=== PATIENT | female | born 1945 | race Caucasian/White ===

== ENCOUNTER 2016-10-17 16:12 | Inpatient (IN) | payer OTHER ==
[~2016-10-17] VITALS: Ht 157.5 cm; Wt 116.0 kg
[2016-10-17] MEDS ORDERED: FLOVENT INH (17:08)
[2016-10-17] MEDS ORDERED: METO25TA56 PO (17:08)
[2016-10-17] MEDS ORDERED: OMEP40CA41 PO (17:08)
[2016-10-17] MEDS ORDERED: INSDGIPEN SC (17:08)
[2016-10-17] MEDS ORDERED: ASPCH81X PO (17:08)
[2016-10-17] MEDS ORDERED: CALC500C70 PO (17:08)
[2016-10-17] MEDS ORDERED: IPRA1AER2 INH (17:08)
[2016-10-17] MEDS ORDERED: DIAZ2TAB PO (17:08)
[2016-10-17] MEDS ORDERED: DULA1INJ SQ (17:08)
[2016-10-17] MEDS ORDERED: SPIR25TA PO (17:08)
[2016-10-17] MEDS ORDERED: HYDR-4383 PO (17:08)
[2016-10-17] MEDS ORDERED: SYMIN160 INH (17:08)
[2016-10-17] MEDS ORDERED: HYDR25TA4 PO (17:08)
[2016-10-17] MEDS ORDERED: FLUT0.15 NAE (17:08)
[2016-10-17] MEDS ORDERED: LORAZEPAM 2 MG/ML 1 ML VIAL IV ONE (17:15)
[2016-10-17] MEDS ORDERED: ALBUT/IPRATROP 3MG/0.5MG NEB 3 ML VIAL INH ONE (17:15)
[2016-10-17 17:35] LABS: MEAN CORPUSCULAR HGB CONC 31.3 g/dl (32-36); MEAN PLATELET VOLUME 9.5 fL (7.4-10.4); PLATELET COUNT 448 K/uL (130-400)
[2016-10-17 17:51] LABS: BUN/CREATININE RATIO 15.8 (10-20); CALCIUM 8.8 mg/dl (8.5-10.1); CREATININE 2.4 mg/dl (0.60-1.20); POTASSIUM 4.2 mmol/L (3.5-5.1)
[2016-10-17 18:02] LABS: CKMB/CK RATIO 4.8 (0-3.0)
--- NOTE | 2016-10-17 18:10 | EMERGENCY ROOM VISIT NOTE ---
History First contact with patient: 16:42 Chief Complaint: SHORTNESS OF BREATH Stated Complaint: SOB,SWELLING IN THE FEET Nursing Triage Summary: increasing shortness of breath with cough and expectortion of yellow green mucus. History of Present Illness The patient is a 71 year old female who presents to the Emergency Room with complaints of progressive shortness of breath and chest pain for the past 2 weeks. Patients was noted to have gone to [place] ED because PCP noted 'abnormal Hb' , which was obtained due to progressive fatigue. She was evaluated there and noted to have a low but stable Hb 9.4. Baseline hemoglobin is unknown at this time. She was also found to have a Cr of 4.3 and recommend transfer to [facility] as they have a nephrology service. She was discharged AMA due to fear of having to stay at [facility]. She presents to [facility] with symptoms of shortness of breath and chest pain. The shortness of breath is constant. She takes 3 L nasal cannula at home ( reason uncertain, she denies COPD), oxygen needs have not increased but she feels overall more short of breath. She has also been having a productive cough with yellow sputum. She has been on oxygen since a bout of PNA in February 2016. She notes that Dr. Christiansen has been weaning her off of it slowly and she was doing well, until her shortness of breath began to worsen 2 weeks ago. In addition, she has been complaint of sternal chest pain that is worse with walking and improves 30 minutes after resting. The pain also radiate down her left arm. She denies using nitroglycerine or a past cardiac history. The pain is not pleuritic in nature. She denies radiation into the back. In addition, she notes worsening lower extremity edema with orthopnea. She denies palpitations or syncope. Past Medical/Surgical History Medical Problems: (1) GI bleed (2) High output heart failure History of Lung Ca with partial Right Pneumonectomy Hysterectomy HTN Diabetes Mellitus type 2 Home oxygen user (3 L by nasal cannula at baseline) Social History Smoking Status: Former Smoker (quit 10 years ago; 20 pack miles smoker) Smokeless Tobacco Use: No Alcohol Use: none Drug Use: none Marital Status: Housing Status: lives with family (lives with daughter) Current/Historical Medications Scheduled Aspirin (Aspirin Chewable), 81 MG PO DAILY Budesonide/Formoterol Fumarate (Symbicort 160/4.5 Inhaler ), 2 PUFFS INH BID Calcium/Vitamin D (Os-Solomon 500 Plus D), 1 TAB PO DAILY Dulaglutide (Trulicity), 0.75 MG SQ WK Fluticasone Propionate (Nasal) (Flonase Allergy Relief), 2 SPRAY IGNACIO DAILY Hydrochlorothiazide (Hctz), 25 MG PO DAILY Insulin Glargine (Lantus Solostar), 25 SC QPM Ipratropium-Albuterol (Combivent Respimat), 1 PUFFS INH QID Metoprolol Tartrate (Lopressor) (Lopressor), 25 MG PO BID Omeprazole (Prilosec), 40 MG PO DAILY Spironolactone (Aldactone), 25 MG PO DAILY [Flovent 110], 2 PUFF INH BID Scheduled PRN Diazepam (Valium), 2 MG PO TID PRN for Anxiety Hydrocodone/Acetaminophen (Anderson 10/325 Tab), 1 TAB PO TID PRN for Pain Allergies Coded Allergies: Phenol (Verified Allergy, Unknown, unknown (from chloraseptic), 10/17/16) Physical Exam Vital Signs Date Time Temp Pulse Resp B/P Pulse Ox O2 Delivery O2 Flow Rate FiO2 10/17/16 19:54 91 22 144/115 96 Nasal Cannula 3.0 10/17/16 17:05 97 10/17/16 16:57 97 Nasal Cannula 3.0 10/17/16 16:54 97 Nasal Cannula 3.0 10/17/16 16:24 36.5 62 28 189/102 86 Nasal Cannula 2.0 Physical Exam Constitutional: Vital signs as above were reviewed. General: Patient mildly agitated, mild distress, obese Eyes: Pupils equal, round, and reactive to light. Extraocular muscles are intact. No proptosis. No photophobia. ENT: Mucous membranes are moist. Oropharynx is clear. No sinus tenderness. TMs are clear bilaterally. Cardiovascular: Heart with a regular rate and rhythm. Pulses are palpable and symmetric in all 4 extremities. 2+ pedal edema chcf up the calfs Respiratory: No accessory muscle use. No retractions. No increased work of breathing. NC at baseline 3 L Expiratory wheezing bilaterally; cannot appreciate in crackles GI: Abdomen soft, nontender, nondistended. Normal active bowel sounds. No abdominal hernias appreciated. No rebound. No guarding. : No CVA tenderness appreciated. Musculoskeletal: No midline cervical or vertebral tenderness. No gross deformities. No bony tenderness. No calf swelling or tenderness. Integumentary: Warm, dry, no rashes appreciated. Neurological: Patient awake, alert, and oriented x 3. Cranial nerves two through 12 grossly intact. Lymph: No cervical lymphadenopathy appreciated. Medical Decision & Procedures ER Provider Diagnostic Interpretation: CLINICAL HISTORY: Dyspnea. FINDINGS: An AP, portable, upright chest radiograph is correlated with chest CT dated 07/27/2016. The examination is significantly degraded by portable technique, large body habitus, and patient rotation. The heart is enlarged and there is atherosclerotic calcification of the thoracic aorta. There is pulmonary vascular congestion and interstitial edema. Postoperative changes are identified in the right lung. No large pleural effusion or pneumothorax is seen. The skeletal structures are osteopenic. Postoperative change is noted in the right sided ribs. IMPRESSION: 1. Cardiomegaly with evidence of congestive failure and interstitial edema. 2. Superimposed pneumonia would be impossible to exclude. Clinical correlation will be required. 3. No large pleural effusion is seen Electronically signed by: Minor Reno M.D. 10/17/2016 6:30 PM Dictated Date/Time: 10/17/2016 6:28 PM Laboratory Results 10/17/16 17:27 Red Blood Count 3.32, Mean Corpuscular Volume 85.5, Mean Corpuscular Hemoglobin 26.8, Mean Corpuscular Hemoglobin Concent 31.3, Mean Platelet Volume 9.5 10/17/16 17:27 Test 10/17/16 17:27 10/17/16 19:23 White Blood Count 19.02 K/uL (4.8-10.8) Red Blood Count 3.32 M/uL (4.2-5.4) Hemoglobin 8.9 g/dL (12.0-16.0) Hematocrit 28.4 % (37-47) Mean Corpuscular Volume 85.5 fL (80-100) Mean Corpuscular Hemoglobin 26.8 pg (25-34) Mean Corpuscular Hemoglobin Concent 31.3 g/dl (32-36) Platelet Count 448 K/uL (130-400) Mean Platelet Volume 9.5 fL (7.4-10.4) RDW Standard Deviation 58.4 fL (36.4-46.3) RDW Coefficient of Variation 18.7 % (11.5-14.5) Nucleated RBC Absolute Count (auto) 0.08 K/uL (0-0) Neutrophils % (Manual) 37.2 % Lymphocytes % (Manual) 8.0 % Monocytes % (Manual) 1.8 % Eosinophils % (Manual) 53.0 % Nucleated Red Blood Cells % 0.4 % Neutrophils # (Manual) 7.08 K/uL (1.4-6.5) Total Absolute Neutrophils 7.08 K/uL (1.4-6.5) Lymphocytes # (Manual) 1.52 K/uL (1.2-3.4) Total Absolute Lymphocytes 1.52 K/uL (1.2-3.4) Monocytes # (Manual) 0.34 K/uL (0.11-0.59) Eosinophils # (Manual) 10.08 K/uL (0-0.5) Large Platelets 1+ Polychromasia 1+ Hypochromasia PRESENT Anisocytosis PRESENT Prothrombin Time 11.2 SECONDS (9.0-12.0) Prothromb Time International Ratio 1.0 (0.9-1.1) Activated Partial Thromboplast Time 23.6 SECONDS (21.0-31.0) Partial Thromboplastin Ratio 0.9 Anion Gap 10.0 mmol/L (3-11) Est Creatinine Clear Calc Drug Dose 24.4 ml/min Estimated GFR () 22.5 Estimated GFR (Non- 19.4 BUN/Creatinine Ratio 15.8 (10-20) Calcium Level 8.8 mg/dl (8.5-10.1) Total Creatine Kinase 96 U/L (26-192) Creatine Kinase MB 4.6 ng/ml (0.5-3.6) Creatine Kinase MB Ratio 4.8 (0-3.0) Procalcitonin 0.10 ng/mL (0-0.5) Troponin I 2.520 ng/ml (0-0.045) Medications Administered Medications (Trade) Dose Ordered Sig/Lucas Route Start Time Stop Time Status Last Admin Dose Admin Lorazepam (Ativan Inj) 1 mg NOW ONCE IV 10/17/16 17:15 10/17/16 17:16 DC 10/17/16 17:39 1 MG Albuterol/ Ipratropium (Duoneb) 3 ml ONE ONCE INH 10/17/16 17:15 10/17/16 17:16 DC 10/17/16 17:39 3 ML Aspirin (Aspirin Chew) 324 mg NOW STAT PO 10/17/16 18:15 10/17/16 18:20 DC 10/17/16 19:56 324 MG Methylprednisolone Sodium Succinate (Solu-Medrol IV) 125 mg NOW STAT IV 10/17/16 19:08 10/17/16 19:11 DC 10/17/16 19:57 125 MG Albuterol/ Ipratropium (Duoneb) 3 ml QIDR INH 10/17/16 20:00 11/16/16 19:59 10/17/16 19:57 3 ML ED Course 16:40 - Patient seen and assessed Initial orders: CBC, BMP, Troponin, CK, CKMB, EKG, Chest X-ray Request old records from [facility] 17:30 - Old records received and reviewed Cr one week ago was 4.3; troponin was 1.3, WBC 13 18:00 - Critical result given to me: troponin 2.4 325 ASA ordered for patient 18:30 - Reviewed EMR Echocardiogram in August 2016; EF 55-60% with grade 1 diastolic dysfunction CXR reviewed; evidence of cardiomegaly with congestion 18:40 - Hemoccult obtained and positive 19:30 - Decision to admit; discussed case with Dr. Génesis Kauffman MD; agrees to admit patient for further work-up Patient admitted to hospitalist service in stable condition. Medical Decision Patient presents after recent discharge from [facility] for worsening shortness of breath and fatigue. History obtained, exam performed and EMR reviewed. Patient noted to have multiple issues at that admission that persist at this time including acute kidney injury. Her Cr is improved today, however but based on limited EMR information from [employer], has had 2 Cr that were 1.6 and 2.3 so her actual baseline is unclear. She notes chest pain, with classic anginal description including worsening with exertion and improvement with rest. Troponin was high 1 week ago per records from [place] and first troponin here as elevated at 2.3. This is somewhat confounded by the fact that the has deranged renal function. In addition she presents with a normocytic anemia with a positive hemoccult, suggestive of a GI bleed. Fortunately, Hb seems stable between today and last week. However, she needs to be typed and crossed in case she decompensates acute. In light of her GI bleed, she was withheld from anticoagulation. Given the multiple of issues requiring ongoing work-up or treatment, she will be admitted Impression Primary Impression: GI bleed Additional Impressions: Congestive heart failure Acute kidney failure Departure Information Referrals Brett Dela Cruz M.D. (PCP) Patient Instructions My [facility] Problem Qualifiers
[2016-10-17] MEDS ORDERED: ASPIRIN 81 MG CHEW PO STA (18:15)
[2016-10-17 18:23] LABS: ANISOCYTOSIS PRESENT; COMPLETE YES; HEMATOCRIT 28.4 % (37-47); HYPOCHROMIA PRESENT; LARGE PLATELETS 1+; LYMPH ABS # 1.52 K/uL (1.2-3.4); MEAN CELL VOLUME 85.5 fL (80-100); MEAN CORPUSCULAR HEMOGLOBIN 26.8 pg (25-34); NEUTROPHILS % 37.2 %; POLYCHROMASIA 1+; RED BLOOD COUNT 3.32 M/uL (4.2-5.4); WHITE BLOOD COUNT 19.02 K/uL (4.8-10.8)
[2016-10-17 18:31] LABS: PARTIAL THROMBOPLASTIN RATIO 0.9; PROTHROMBIN TIME (PATIENT) 11.2 SECONDS (9.0-12.0)
--- NOTE | 2016-10-17 18:32 | DIAGNOSTIC IMAGING REPORT ---
SINGLE VIEW CHEST CLINICAL HISTORY: Dyspnea. FINDINGS: An AP, portable, upright chest radiograph is correlated with chest CT dated 07/27/2016. The examination is significantly degraded by portable technique, large body habitus, and patient rotation. The heart is enlarged and there is atherosclerotic calcification of the thoracic aorta. There is pulmonary vascular congestion and interstitial edema. Postoperative changes are identified in the right lung. No large pleural effusion or pneumothorax is seen. The skeletal structures are osteopenic. Postoperative change is noted in the right sided ribs. IMPRESSION: 1. Cardiomegaly with evidence of congestive failure and interstitial edema. 2. Superimposed pneumonia would be impossible to exclude. Clinical correlation will be required. 3. No large pleural effusion is seen Electronically signed by: Minor Reno M.D. 10/17/2016 6:30 PM Dictated Date/Time: 10/17/2016 6:28 PM
[2016-10-17] MEDS ORDERED: METHYLPREDNISOLONE 125 MG VIAL IV STA (19:08)
--- NOTE | 2016-10-17 19:35 | EMERGENCY ROOM VISIT NOTE ---
ED Visit Note First contact with patient: 16:42 Patient evaluated with resident. 71 y/o presented to ED with daughter for evaluation of worsening exertional dyspnea and chest pain for several days after recently signing out AMA from [facility] ED after she was advised that transfer was to be arranged to [facility]. Longstanding history of "breathing problems that get better with steroids." Patient is obese and has cushionoid like appearance. Pt/daughter are unclear about nature of respiratory problems but note she was started on 3L NC home O2 last year. (+) severe wheezing in all lung ty on exam. Troponin elevated today with NSSTC on EKG and anemia with heme positive stool. asa given and T&S ordered. Admission arranged with hospitalist at 19:30.
[2016-10-17] MEDS ORDERED: ALBUT/IPRATROP 3MG/0.5MG NEB 3 ML VIAL INH SCH (20:00)
[2016-10-17] MEDS ORDERED: SODIUM CHLORIDE 0.9% 1000ML 1,000 ML IV SCH ×2 (20:06→20:30)
[2016-10-17] MEDS ORDERED: NITROGLYCERIN 0.4 MG SL PER TAB CHARGE SL PRN (20:15)
[2016-10-17] MEDS ORDERED: PANTOprazole INJ 80 MG in DEXTROSE 5% 100ML IV SCH (20:15)
[2016-10-17] MEDS ORDERED: BUDESONIDE 0.5 MG/2 ML VIAL (PULMICORT) INH ONE (20:18)
[2016-10-17] MEDS ORDERED: DIAZEPAM 2MG TAB PO PRN (20:30)
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
[2016-10-17 20:50] LABS: HEMATOCRIT 27.2 % (37-47)
[2016-10-17] MEDS: PANTOprazole INJ 40 MG in DEXTROSE 5% 100ML IV SCH (20:54)
[2016-10-17] MEDS ORDERED: NITROGLYCERIN OINT 2% 1GM PACKET ONE (20:58)
[2016-10-17] MEDS ORDERED: HydrALAZINE HCL 20 MG/ML VIAL IV. PRN (21:00)
[2016-10-17] MEDS ORDERED: METOPROLOL TARTRATE 25 MG TAB PO SCH (21:00)
[2016-10-17] MEDS: NITROGLYCERIN OINT 2% 1GM PACKET EXT SCH (21:04)
[2016-10-17] MEDS ORDERED: METOPROLOL TARTRATE 25 MG TAB PO ONE (22:41)
[2016-10-17] MEDS ORDERED: METOPROLOL TARTRATE 1 MG/ML VIAL IV PRN (22:45)
[2016-10-17] MEDS ORDERED: PIPERACILL/TAZOBAC IV 3.375 GM in DEXTROSE 5% 100ML 100 ML IV ONE (22:49)
[2016-10-17] MEDS ORDERED: VANCOMYCIN INJ 1,000 MG in SODIUM CHLORIDE 0.9% 250ML 250 ML IV STA (22:49)
[2016-10-17 22:59] VITALS: BP 185/124; PULSE 106; TEMP 37.3; O2SAT 91; Ht 157.5 cm; Wt 116.0 kg
[2016-10-17] MEDS ORDERED: PIPERACILL/TAZOBAC IV 4.5 GM in DEXTROSE 5% 100ML IV SCH (23:00)
[2016-10-17] MEDS ORDERED: LORAZEPAM 2 MG/ML 1 ML VIAL IV PRN (23:00)
[2016-10-17] MEDS ORDERED: NURSING VERBAL MED ORDER ONE (23:15)
[2016-10-17] MEDS: DIAZEPAM 2MG TAB PO SCH (23:27)
[2016-10-17] MEDS ORDERED: VANCOMYCIN INJ 2,200 MG in SODIUM CHLORIDE 0.9% 500ML 500 ML IV SCH (23:30)
[2016-10-17 23:50] VITALS: BP 157/97; PULSE 97; TEMP 36.4; O2SAT 91
[2016-10-18] VITALS (15 sets, daily range): BP systolic 145–203; BP diastolic 83–117; PULSE 75–113; TEMP 36.4–36.8; O2SAT 89–100
[2016-10-18] MEDS ORDERED: PIPERACILL/TAZOBAC CONSULT ACTIVE PRN (00:30)
[2016-10-18] MEDS ORDERED: VANCOMYCIN CONSULT ACTIVE PRN (00:30)
[2016-10-18] MEDS: PANTOprazole INJ 40 MG in DEXTROSE 5% 100ML IV SCH ×5 (01:54→21:34)
[2016-10-18] MEDS: NITROGLYCERIN OINT 2% 1GM PACKET EXT SCH ×3 (01:54→14:26)
[2016-10-18 02:34] LABS: HEMATOCRIT 27.9 % (37-47)
[2016-10-18] MEDS: LEVALBUTEROL 1.25MG/0.5ML NEB INH SCH ×4 (03:00→19:49)
[2016-10-18 03:10] LABS: CKMB/CK RATIO 4.1 (0-3.0)
--- NOTE | 2016-10-18 03:20 | Progress Note ---
Progress Note RESIDENT DIRECTOR OF GOLF COVERAGE NOTE Called bc pt was delirious, had hallucinations, daughter considered leaving AMA Discussed with daughter extensively. Delirium likely contributed to by ativan ( received 1mg in ED, .5mg on floors), which she usually does not take (though takes diazepam 1-2mg TID PRN) Discussed other causes of delirium (infection - though she has already started receiving antibiotics, disorientation, and stroke - though she has no focal signs) O/E Pt laying flat, initially oriented to name but not place or person. No changes in clinical exam from H&P A- Likely multifactorial delirium - precipitated by ativan administration P- Avoid further benzodiazepine use Urinalysis if able to get one CT chest still pending once pt calm - could consider CT head as well if this persists Resident Tracking Resident Involvement: Coach Mechanic Coverage Note Care Provided: Adult Hospital Medicine
[2016-10-18] MEDS: PIPERACILL/TAZOBAC IV 4.5 GM in DEXTROSE 5% 100ML IV SCH ×3 (05:01→22:23)
[2016-10-18] MEDS ORDERED: PIPERACILL/TAZOBAC IV 3.375 GM in DEXTROSE 5% 100ML 100 ML IV SCH (06:00)
[2016-10-18 07:41] LABS: BASO % 0.5 %; BASO ABS # 0.04 K/uL (0-0.2); EOS % 1.4 %; HEMATOCRIT 26.3 % (37-47); IG% 1.3 %; LYMPH % 15.5 %; LYMPH ABS # 1.31 K/uL (1.2-3.4); MEAN CELL VOLUME 85.7 fL (80-100); MEAN CORPUSCULAR HEMOGLOBIN 26.4 pg (25-34); MEAN CORPUSCULAR HGB CONC 30.8 g/dl (32-36); NEUT % 79.3 %; PLATELET COUNT 427 K/uL (130-400); RED BLOOD COUNT 3.07 M/uL (4.2-5.4); WHITE BLOOD COUNT 8.44 K/uL (4.8-10.8)
[2016-10-18 07:49] LABS: INR 1.1 (0.9-1.1); PROTHROMBIN TIME (PATIENT) 11.7 SECONDS (9.0-12.0)
[2016-10-18 08:06] LABS: BUN/CREATININE RATIO 15.2 (10-20); CALCIUM 8.8 mg/dl (8.5-10.1); CREATININE 2.2 mg/dl (0.60-1.20); POTASSIUM 4.4 mmol/L (3.5-5.1)
[2016-10-18 08:07] LABS: COMPLETE YES; HYPOCHROMIA PRESENT; POLYCHROMASIA 1+
[2016-10-18 08:08] LABS: ALB/GLOB RATIO 0.4 (0.9-2)
--- NOTE | 2016-10-18 08:30 | Clinical Documentation Query ---
[facility] : CLINICAL DOCUMENTATION QUERIES QUERY 1 OF 4 Patient is a 71 year old female admitted with potential GI bleed, elevated troponin, acute on chronic renal insufficiency and COPD exacerbation vs pneumonia. Documentation includes (the patient) "is always on 3L nasal cannula". Risk factors include lung CA s/p lobectomy, COPD, smoking history. Please clarify as clinically appropriate. In your clinical opinion is this patient being managed for: ( x ) Chronic hypoxic respiratory failure ( ) Other explanation of clinical findings (Please Explain) ( ) Unable to determine (Please Define) ( ) Need to Discuss ( ) Not Agree The medical record reflects the following clinical findings, treatment, and risk factors. Clinical Indicators: As above Treatment: Provision of supplemental oxygen Risk Factors: Risk factors include lung CA s/p lobectomy, COPD, smoking history QUERY 2 OF 4 H&P documentation includes "High output heart failure". This cannot be interpreted by the professional solar applications development engineer to be synonymous with preserved output or diastolic CHF. She is being treated with Spironolactone and Lopressor and is being monitored on telemetry with daily weights, I/O, and serial labs. Cardiology consultation and repeat echocardiogram pending. Please clarify as clinically appropriate. In your clinical opinion is this patient being managed for: ( x ) Chronic diastolic (congestive) heart failure ( ) Other explanation of clinical findings (Please Explain) ( ) Unable to determine (Please Define) ( ) Need to Discuss ( ) Not Agree The medical record reflects the following clinical findings, treatment, and risk factors. Clinical Indicators: As above Treatment: She is being treated with Spironolactone and Lopressor and is being monitored on telemetry with daily weights, I/O, and serial labs. Cardiology consultation and repeat echocardiogram pending Risk Factors: COPD, ?pulmonary hypertension, arterial hypertension QUERY 3 OF 4 H&P documentation includes "Potential upper GI bleed, causing anemia". Please qualify the likely or suspected chronicity of anemia in your patient. In your clinical opinion is this patient being managed for: ( ) Acute blood loss anemia ( ) Chronic blood loss anemia ( x ) Other explanation of clinical findings (Please Explain) Subacute/acute on chronic ( ) Unable to determine (Please Define) ( ) Need to Discuss ( ) Not Agree The medical record reflects the following clinical findings, treatment, and risk factors. Clinical Indicators: As above Treatment: NPO, GI consult, PPI infusion, pending EGD Risk Factors: Age, excessive NSAID use QUERY 4 OF 4 H&P documentation makes note of an elevated troponin of 2.3 at [facility]. Problem list noted to include "elevated troponins". Treatment includes trending cardiac enzymes q6h. Hold metoprolol 25mg BID and hold hydrochlorothiazide 25mg daily for now. We will provide hydralazine 10mg q6h PRN for SBP > 160 or DBP >110. Hold aspirin. Repeat EKG in AM. Cardiology consultation. CKMB and troponin elevated from stated values on admission, with troponin further increasing to 2.52 ng/ml this a.m. EKG demonstrated inferior and anterior T wave inversions. Myocardial Infarction ICD-10-CM Official Guidelines for Coding and Reporting 9. Chapter 9: Diseases of Circulatory System (I00-I99) e. Acute myocardial infarction (AMI) 1) ST elevation myocardial infarction (STEMI) and non ST elevation myocardial infarction (NSTEMI) The ICD-10-CM codes for acute myocardial infarction (AMI) identify the site, such as anterolateral wall or true posterior wall. Subcategories I21.0-I21.2 and code I21.3 are used for ST elevation myocardial infarction (STEMI). Code I21.4, Non-ST elevation (NSTEMI) myocardial infarction, is used for non ST elevation myocardial infarction (NSTEMI) and nontransmural MIs. If NSTEMI evolves to STEMI, assign the STEMI code. If STEMI converts to NSTEMI due to thrombolytic therapy, it is still coded as STEMI. For encounters occurring while the myocardial infarction is equal to, or less than, four weeks old, including transfers to another acute setting or a postacute setting, and the patient requires continued care for the myocardial infarction, codes from category I21 (AMI) may continue to be reported. For encounters after the 4 week time frame and the patient is still receiving care related to the myocardial infarction, the appropriate aftercare code should be assigned, rather than a code from category I21. For old or healed myocardial infarctions not requiring further care, code I25.2, Old myocardial infarction, may be assigned. In your clinical opinion is this patient being managed for: ( ) (Likely/suspected) Inferior NSTEMI ( x ) Other explanation of clinical findings (Please Explain) Demand ischemia ( ) Unable to determine (Please Define) ( ) Need to Discuss ( ) Not Agree The medical record reflects the following clinical findings, treatment, and risk factors. Clinical Indicators: As above Treatment:Treatment includes trending cardiac enzymes q6h. Hold metoprolol 25mg BID and hold hydrochlorothiazide 25mg daily for now. We will provide hydralazine 10mg q6h PRN for SBP > 160 or DBP >110. Hold aspirin. Repeat EKG in AM. Cardiology consultation. Risk Factors: Age, cancer, heart failure, hypertension, DM Please clarify and document your clinical opinion in the progress notes and discharge summary. Terms such as "probable", "suspected", "likely", "questionable", "possible", or "still to be ruled out" are acceptable. IF IN AGREEMENT, YOU MUST DOCUMENT ABOVE DIAGNOSTIC STATEMENT IN DAILY PROGRESS NOTES AND DISCHARGE SUMMARY. This document is not part of the patient's record. Thank You, Corey Swanson, ELIZABETH [phone]
--- NOTE | 2016-10-18 08:32 | Clinical Documentation Query ---
TORIE Mcdonald : CLINICAL DOCUMENTATION QUERIES QUERY 1 OF 4 Patient is a 71 year old female admitted with potential GI bleed, elevated troponin, acute on chronic renal insufficiency and COPD exacerbation vs pneumonia. Documentation includes (the patient) "is always on 3L nasal cannula". Risk factors include lung CA s/p lobectomy, COPD, smoking history. Please clarify as clinically appropriate. In your clinical opinion is this patient being managed for: (x ) Chronic hypoxic respiratory failure ( ) Other explanation of clinical findings (Please Explain) ( ) Unable to determine (Please Define) ( ) Need to Discuss ( ) Not Agree The medical record reflects the following clinical findings, treatment, and risk factors. Clinical Indicators: As above Treatment: Provision of supplemental oxygen Risk Factors: Risk factors include lung CA s/p lobectomy, COPD, smoking history QUERY 2 OF 4 H&P documentation includes "High output heart failure". This cannot be interpreted by the professional geochemical laboratory technician to be synonymous with preserved output or diastolic CHF. She is being treated with Spironolactone and Lopressor and is being monitored on telemetry with daily weights, I/O, and serial labs. Cardiology consultation and repeat echocardiogram pending. Please clarify as clinically appropriate. In your clinical opinion is this patient being managed for: ( x ) Chronic diastolic (congestive) heart failure ( ) Other explanation of clinical findings (Please Explain) ( ) Unable to determine (Please Define) ( ) Need to Discuss ( ) Not Agree The medical record reflects the following clinical findings, treatment, and risk factors. Clinical Indicators: As above Treatment: She is being treated with Spironolactone and Lopressor and is being monitored on telemetry with daily weights, I/O, and serial labs. Cardiology consultation and repeat echocardiogram pending Risk Factors: COPD, ?pulmonary hypertension, arterial hypertension QUERY 3 OF 4 H&P documentation includes "Potential upper GI bleed, causing anemia". Please qualify the likely or suspected chronicity of anemia in your patient. In your clinical opinion is this patient being managed for: ( ) Acute blood loss anemia ( ) Chronic blood loss anemia ( x ) Other explanation of clinical findings (Please Explain) subacute blood loss anemia ( ) Unable to determine (Please Define) ( ) Need to Discuss ( ) Not Agree The medical record reflects the following clinical findings, treatment, and risk factors. Clinical Indicators: As above Treatment: NPO, GI consult, PPI infusion, pending EGD Risk Factors: Age, excessive NSAID use QUERY 4 OF 4 H&P documentation makes note of an elevated troponin of 2.3 at [facility]. Problem list noted to include "elevated troponins". Treatment includes trending cardiac enzymes q6h. Hold metoprolol 25mg BID and hold hydrochlorothiazide 25mg daily for now. We will provide hydralazine 10mg q6h PRN for SBP > 160 or DBP >110. Hold aspirin. Repeat EKG in AM. Cardiology consultation. CKMB and troponin elevated from stated values on admission, with troponin further increasing to 2.52 ng/ml this a.m. EKG demonstrated inferior and anterior T wave inversions. Myocardial Infarction ICD-10-CM Official Guidelines for Coding and Reporting 9. Chapter 9: Diseases of Circulatory System (I00-I99) e. Acute myocardial infarction (AMI) 1) ST elevation myocardial infarction (STEMI) and non ST elevation myocardial infarction (NSTEMI) The ICD-10-CM codes for acute myocardial infarction (AMI) identify the site, such as anterolateral wall or true posterior wall. Subcategories I21.0-I21.2 and code I21.3 are used for ST elevation myocardial infarction (STEMI). Code I21.4, Non-ST elevation (NSTEMI) myocardial infarction, is used for non ST elevation myocardial infarction (NSTEMI) and nontransmural MIs. If NSTEMI evolves to STEMI, assign the STEMI code. If STEMI converts to NSTEMI due to thrombolytic therapy, it is still coded as STEMI. For encounters occurring while the myocardial infarction is equal to, or less than, four weeks old, including transfers to another acute setting or a postacute setting, and the patient requires continued care for the myocardial infarction, codes from category I21 (AMI) may continue to be reported. For encounters after the 4 week time frame and the patient is still receiving care related to the myocardial infarction, the appropriate aftercare code should be assigned, rather than a code from category I21. For old or healed myocardial infarctions not requiring further care, code I25.2, Old myocardial infarction, may be assigned. In your clinical opinion is this patient being managed for: ( ) (Likely/suspected) Inferior NSTEMI x( x) Other explanation of clinical findings (Please Explain) severe demand ischemia ( ) Unable to determine (Please Define) ( ) Need to Discuss ( ) Not Agree The medical record reflects the following clinical findings, treatment, and risk factors. Clinical Indicators: As above Treatment:Treatment includes trending cardiac enzymes q6h. Hold metoprolol 25mg BID and hold hydrochlorothiazide 25mg daily for now. We will provide hydralazine 10mg q6h PRN for SBP > 160 or DBP >110. Hold aspirin. Repeat EKG in AM. Cardiology consultation. Risk Factors: Age, cancer, heart failure, hypertension, DM Please clarify and document your clinical opinion in the progress notes and discharge summary. Terms such as "probable", "suspected", "likely", "questionable", "possible", or "still to be ruled out" are acceptable. IF IN AGREEMENT, YOU MUST DOCUMENT ABOVE DIAGNOSTIC STATEMENT IN DAILY PROGRESS NOTES AND DISCHARGE SUMMARY. This document is not part of the patient's record. Thank You, Corey Swanson, ELIZABETH [phone]
[2016-10-18] MEDS ORDERED: METOPROLOL TARTRATE 25 MG TAB PO SCH (09:00)
[2016-10-18] MEDS ORDERED: HYDROCHLOROTHIAZIDE 25 MG TAB PO SCH (09:00)
[2016-10-18] MEDS ORDERED: VANCOMYCIN INJ 1,000 MG in SODIUM CHLORIDE 0.9% 250ML 250 ML IV SCH ×2 (09:00→23:00)
[2016-10-18 09:30] LABS: CHOLESTEROL/HDL RATIO 6.4; CKMB/CK RATIO 3.4 (0-3.0)
[2016-10-18] MEDS: DIAZEPAM 2MG TAB PO SCH ×3 (09:59→20:23)
[2016-10-18] MEDS: SPIRONOLACTONE 25 MG TAB PO SCH (09:59)
--- NOTE | 2016-10-18 10:36 | Gastrointestinal Consultation ---
Gastrointestinal Consultation Date of Consultation: Oct 18, 2016 Attending Physician: Dr. Hall Consulting Physician: Dr. Moe, Ashlee Rodrigues PA-C Reason for Consultation: Possible upper bleed History of Present Illness Patient is a 71 year old female who presents to the hospital for evaluation of shortness of breath & swelling of her feet. She reports she developed left arm pain after a flu shot, but when her daughter encouraged her that it could be something more, she went to her family doctor and she was noted to have elevated troponins. She was subsequently hospitalized at [facility] for this issue. I do not have records at present for this hospitalization, though per family reports consideration was given to a cardiac catheterization, however the patient opted to leave [place] as she had a previous bad experience with surgery at [facility]. She reports that she has struggled with breathing problems and has been given steroids frequently. She presented again to [facility] on 10/17 for worsening SOB & swelling. A CXR indicated congestive changes and cardiomegaly as well as interstitial edema. Radiology found it difficult to exclude a super imposed pneumonia and the patient is being treated for this. Her H/H is stable at 8.0/25.7. She was noted to have heme positive stool, but denies noticing any melena, hematochezia, or hematemesis. She denies abdominal pain. She reports she briefly took NSAIDs when she developed the left arm pain. Her Troponin at present is 2.76. Her BUN/ Cr is 34/2.2. She reports some improvement of her shortness of breath. She denies any personal history of GI issues as well as denies a family history of IBD or GI malignancy. She offers no further complaints at present. She is notably anxious. Past Medical/Surgical History Medical Problems: (1) Acute kidney failure Status: Acute (2) Congestive heart failure Status: Acute Past Medical History: anxiety, depression, heart failure, obesity, smoking history, COPD Past Surgical History: hysterectomy Social History Smoking Status: Unknown if Ever Smoked Alcohol Use: none Drug Use: none Marital Status: Housing Status: lives with family (lives with daughter) Allergies Coded Allergies: Phenol (Verified Allergy, Unknown, unknown (from chloraseptic), 10/17/16) Lorazepam (Verified Adverse Reaction, Intermediate, agitation, 10/18/16) see 10/18/16 hospital stay for further details Current Medications Home Meds and Scripts Medications Dose Route/Sig Max Daily Dose Days Date Category Aldactone (Spironolactone) 25 Mg Tab 25 Mg PO DAILY 10/17/16 Reported Hctz (Hydrochlorothiazide) 25 Mg Tab 25 Mg PO DAILY 10/17/16 Reported [place] 10/325 Tab (Acetaminophen/Hydrocodone Bitart) 1 Tab Tab 1 Tab PO TID PRN 10/17/16 Reported [Flovent 110] 2 Puff INH BID 10/17/16 Reported Flonase Allergy Relief (Fluticasone Propionate (Nasal)) 50 Mcg/Act Spr 2 [place] IGNACIO DAILY 10/17/16 Reported Lantus Solostar (Insulin Glargine) 100 Unit/Ml Inj 25 SC QPM 10/17/16 Reported Valium (Diazepam) 2 Mg Tab 2 Mg PO TID PRN 10/17/16 Reported [place]-Sol[place] 500 Plus D (Calcium/Vitamin D) Tab 1 Tab PO DAILY 10/17/16 Reported Aspirin Chewable (Aspirin) 81 Mg Chew 81 Mg PO DAILY 10/17/16 Reported Prilosec (Omeprazole) 40 Mg Cap 40 Mg PO DAILY 10/17/16 Reported Lopressor (Metoprolol Tartrate) 25 Mg Tab 25 Mg PO BID 10/17/16 Reported Trulicity (Dulaglutide) 0.75 Mg/0.5 Ml Inj 0.75 Mg SQ WK 10/17/16 Reported Symbicort 160/4.5 Inhaler (Budesonide/Formoterol Fumarate) Aero 2 Puffs INH BID 10/17/16 Reported Combivent Respimat (Ipratropium-Albuterol) 1 Aer Aer 1 Puffs INH QID 10/17/16 Reported Review of Systems Constitutional: + fatigue, No problem reported, No weight loss Eyes: No problem reported Respiratory: + shortness of breath Cardiac: No chest pain Abdomen: No GI bleeding, No constipation, No diarrhea, No nausea, No pain, No vomiting Musculoskeletal: No joint pain Psych: + anxiety Skin: No problem reported Physical Exam Date Time Temp Pulse Resp B/P Pulse Ox O2 Delivery O2 Flow Rate FiO2 10/18/16 08:01 36.4 75 28 162/105 97 Nasal Cannula 3.0 10/18/16 04:00 Nasal Cannula 3.0 10/18/16 00:00 Nasal Cannula 3.0 10/17/16 23:50 36.4 97 18 157/97 91 Nasal Cannula 3.0 10/17/16 22:59 37.3 106 24 185/124 91 Nasal Cannula 3.0 10/17/16 21:59 99 22 196/117 94 Nasal Cannula 3.0 10/17/16 20:56 92 20 204/127 95 Nasal Cannula 3.0 10/17/16 19:54 91 22 144/115 96 Nasal Cannula 3.0 10/17/16 17:05 97 10/17/16 16:57 97 Nasal Cannula 3.0 10/17/16 16:54 97 Nasal Cannula 3.0 10/17/16 16:24 36.5 62 28 189/102 86 Nasal Cannula 2.0 General Appearance: WD/WN Eyes: normal inspection, PERRL ENT: hearing grossly normal Respiratory/Chest: + decreased breath sounds Cardiovascular: regular rate, rhythm Abdomen: normal bowel sounds, non tender, soft Extremities: non-tender, + swelling Neurologic/Psych: alert, oriented x 3 (easily confused) Skin: normal color Laboratory Results Last 24 Hours Test 10/17/16 17:27 10/17/16 19:23 10/17/16 20:41 10/17/16 22:43 White Blood Count 19.02 K/uL Red Blood Count 3.32 M/uL Hemoglobin 8.9 g/dL 8.5 g/dL Hematocrit 28.4 % 27.2 % Mean Corpuscular Volume 85.5 fL Mean Corpuscular Hemoglobin 26.8 pg Mean Corpuscular Hemoglobin Concent 31.3 g/dl Platelet Count 448 K/uL Mean Platelet Volume 9.5 fL RDW Standard Deviation 58.4 fL RDW Coefficient of Variation 18.7 % Nucleated RBC Absolute Count (auto) 0.08 K/uL Neutrophils % (Manual) 37.2 % Lymphocytes % (Manual) 8.0 % Monocytes % (Manual) 1.8 % Eosinophils % (Manual) 53.0 % Nucleated Red Blood Cells % 0.4 % Neutrophils # (Manual) 7.08 K/uL Total Absolute Neutrophils 7.08 K/uL Lymphocytes # (Manual) 1.52 K/uL Total Absolute Lymphocytes 1.52 K/uL Monocytes # (Manual) 0.34 K/uL Eosinophils # (Manual) 10.08 K/uL Large Platelets 1+ Polychromasia 1+ Hypochromasia PRESENT Anisocytosis PRESENT Prothrombin Time 11.2 SECONDS Prothromb Time International Ratio 1.0 Activated Partial Thromboplast Time 23.6 SECONDS Partial Thromboplastin Ratio 0.9 Sodium Level 140 mmol/L Potassium Level 4.2 mmol/L Chloride Level 103 mmol/L Carbon Dioxide Level 27 mmol/L Anion Gap 10.0 mmol/L Blood Urea Nitrogen 38 mg/dl Creatinine 2.40 mg/dl Est Creatinine Clear Calc Drug Dose 24.4 ml/min Estimated GFR () 22.5 Estimated GFR (Non- 19.4 BUN/Creatinine Ratio 15.8 Random Glucose 130 mg/dl Calcium Level 8.8 mg/dl Total Creatine Kinase 96 U/L Creatine Kinase MB 4.6 ng/ml Creatine Kinase MB Ratio 4.8 Troponin I 2.470 ng/ml 2.520 ng/ml Procalcitonin 0.10 ng/mL Bedside Glucose 172 mg/dl Test 10/18/16 02:09 10/18/16 06:35 10/18/16 07:15 Hemoglobin 8.8 g/dL 8.1 g/dL Hematocrit 27.9 % 26.3 % Total Creatine Kinase 100 U/L 104 U/L Creatine Kinase MB 4.1 ng/ml 3.5 ng/ml Creatine Kinase MB Ratio 4.1 3.4 Troponin I 2.690 ng/ml 2.650 ng/ml Bedside Glucose 187 mg/dl White Blood Count 8.44 K/uL Red Blood Count 3.07 M/uL Mean Corpuscular Volume 85.7 fL Mean Corpuscular Hemoglobin 26.4 pg Mean Corpuscular Hemoglobin Concent 30.8 g/dl Platelet Count 427 K/uL Mean Platelet Volume 10.0 fL Neutrophils (%) (Auto) 79.3 % Lymphocytes (%) (Auto) 15.5 % Monocytes (%) (Auto) 2.0 % Eosinophils (%) (Auto) 1.4 % Basophils (%) (Auto) 0.5 % Neutrophils # (Auto) 6.69 K/uL Lymphocytes # (Auto) 1.31 K/uL Monocytes # (Auto) 0.17 K/uL Eosinophils # (Auto) 0.12 K/uL Basophils # (Auto) 0.04 K/uL RDW Standard Deviation 59.9 fL RDW Coefficient of Variation 19.0 % Immature Granulocyte % (Auto) 1.3 % Immature Granulocyte # (Auto) 0.11 K/uL Nucleated RBC Absolute Count (auto) 0.08 K/uL Nucleated Red Blood Cells % 1.0 % Polychromasia 1+ Hypochromasia PRESENT Prothrombin Time 11.7 SECONDS Prothromb Time International Ratio 1.1 Sodium Level 137 mmol/L Potassium Level 4.4 mmol/L Chloride Level 104 mmol/L Carbon Dioxide Level 24 mmol/L Anion Gap 9.0 mmol/L Blood Urea Nitrogen 34 mg/dl Creatinine 2.20 mg/dl Est Creatinine Clear Calc Drug Dose 27.8 ml/min Estimated GFR () 25.0 Estimated GFR (Non- 21.5 BUN/Creatinine Ratio 15.2 Random Glucose 181 mg/dl Calcium Level 8.8 mg/dl Total Bilirubin 0.4 mg/dl Aspartate Amino Transf (AST/SGOT) 16 U/L Alanine Aminotransferase (ALT/SGPT) 17 U/L Alkaline Phosphatase 103 U/L Total Protein 8.5 gm/dl Albumin 2.5 gm/dl Globulin 6.0 gm/dl Albumin/Globulin Ratio 0.4 Triglycerides Level 120 mg/dl Cholesterol Level 229 mg/dl HDL Cholesterol 36 mg/dl LDL Cholesterol, Calculated 169 mg/dl VLDL Cholesterol, Calculated 24 mg/dl Cholesterol/HDL Ratio 6.4 Impression Patient is a 71 year old female presently admitted for PNA, COPD exacerbation, & possible CHF exacerbation. She was noted to have heme positive stools and anemia which is presently stable. She has not had any signs of active bleeding. Plan 1) Continue Protonix. Can continue previously prescribed Protonix drip for now, however could anticipate transition to 40 mg IV BID. 2) Hold NSAID therapies. 3) Continue to monitor H/H. In the absence of overt GI bleeding and in the presence of hemodynamic stability, would recommend addressing cardiopulmonary issues prior to any consideration of endoscopic procedures. Thank you for allowing us to participate in the care of this patient. If you should have any further questions or concerns, do not hesitate to contact us. Agree with RAZ [place] as above Abd: Soft, NT, ND, +BS Continue current therapy Hold NSAID therapy No signs of overt GI bleeding at this time.
--- NOTE | 2016-10-18 11:55 | Family Medicine Progress Note ---
Progress Note Date of Service Oct 18, 2016. Subjective Pt evaluation today including: conversation w/ patient, conversation w/ family , physical exam, chart review, lab review Patient agitated on Ativan. Not agreeable to answer questions or allow me to perform a physical examination. Patient then started screaming and calling for "Alexa". Was consoled by family friend, who then proceeded to tell me patient is not at her baseline, she usually a very nice person. Unable to attain a HPI or ROS Medications Medications Administered Medications (Trade) Dose Ordered Sig/Lucas Route Start Time Stop Time Status Last Admin Dose Admin Lorazepam (Ativan Inj) 1 mg NOW ONCE IV 10/17/16 17:15 10/17/16 17:16 DC 10/17/16 17:39 1 MG Albuterol/ Ipratropium (Duoneb) 3 ml ONE ONCE INH 10/17/16 17:15 10/17/16 17:16 DC 10/17/16 17:39 3 ML Aspirin (Aspirin Chew) 324 mg NOW STAT PO 10/17/16 18:15 10/17/16 18:20 DC 10/17/16 19:56 324 MG Methylprednisolone Sodium Succinate (Solu-Medrol IV) 125 mg NOW STAT IV 10/17/16 19:08 10/17/16 19:11 DC 10/17/16 19:57 125 MG Albuterol/ Ipratropium (Duoneb) 3 ml QIDR INH 10/17/16 20:00 10/17/16 21:40 DC 10/17/16 19:57 3 ML Nitroglycerin (Nitroglycerin 2% Oint) 1 inch Q6H EXT 10/17/16 20:15 10/18/16 16:28 DC 10/18/16 14:26 1 INCH Pantoprazole Sodium 1 ea 1 ea NOW STAT IV 10/17/16 20:06 10/17/16 20:11 DC 10/17/16 23:07 1 EA Pantoprazole Sodium 80 mg/ Dextrose 120 ml @ 480 mls/hr TODAY@2014 IV 10/17/16 20:15 10/17/16 20:29 DC 10/17/16 20:53 480 MLS/HR Pantoprazole Sodium/Dextrose (Protonix Inj/D5 100ml) 100 ml @ 20 mls/hr Q5H IV 10/17/16 20:30 11/16/16 20:29 10/18/16 21:34 20 MLS/HR Budesonide (Pulmicort Respules 0.5MG/ 2ML Neb Soln) 0.5 mg BIDR INH 10/18/16 08:00 11/17/16 07:59 10/18/16 19:49 0.5 MG Spironolactone (Aldactone Tab) 25 mg DAILY PO 10/18/16 09:00 11/17/16 08:59 10/18/16 09:59 25 MG Diazepam (Valium Tab) 2 mg TID PO 10/17/16 21:00 11/16/16 20:59 10/18/16 20:23 2 MG Hydralazine HCl (HydrALAZINE INJ) 10 mg Q6H PRN IV. 10/17/16 21:00 10/17/16 22:44 DC 10/17/16 21:04 10 MG Metoprolol Tartrate (Lopressor Tab) 25 mg BID PO 10/18/16 09:00 10/18/16 16:18 DC 10/18/16 09:59 25 MG Metoprolol Tartrate (Lopressor Tab) 25 mg 2241 ONCE PO 10/17/16 22:41 10/17/16 22:49 DC 10/17/16 23:27 25 MG Metoprolol Tartrate (Lopressor Iv) 5 mg Q4H PRN IV 10/17/16 22:45 11/16/16 22:44 10/18/16 20:16 5 MG Levalbuterol (Xopenex 1.25MG/ 0.5ML Neb) 1.25 mg Q6R INH 10/18/16 03:00 11/17/16 02:59 10/18/16 19:49 1.25 MG Lorazepam 0.5 mg 0.5 mg Q6H PRN IV 10/17/16 23:00 10/18/16 03:15 DC 10/18/16 00:00 0.5 MG Piperacillin Sod/ Tazobactam Sod 4.5 gm/Dextrose 120 ml @ 200 mls/hr TODAY@2300 IV 10/17/16 23:00 10/17/16 23:35 DC 10/17/16 23:27 200 MLS/HR Vancomycin HCl 2200 mg/Sodium Chloride 544 ml @ 200 mls/hr TODAY@2330 IV 10/17/16 23:30 10/18/16 02:46 DC 10/17/16 23:56 200 MLS/HR Piperacillin Sod/ Tazobactam Sod/ Dextrose (Zosyn Iv/D5 100ml) 120 ml @ 30 mls/hr Q8H IV 10/18/16 04:00 10/19/16 03:59 10/18/16 22:23 30 MLS/HR Metoprolol Tartrate (Lopressor Tab) 25 mg TID PO 10/18/16 21:00 11/17/16 20:59 10/18/16 22:08 25 MG Metoprolol Tartrate (Lopressor Tab) 25 mg NOW ONCE PO 10/18/16 16:45 10/18/16 16:46 DC 10/18/16 16:30 25 MG Atorvastatin Calcium (Lipitor Tab) 80 mg NOW ONCE PO 10/18/16 16:45 10/18/16 16:46 DC 10/18/16 17:33 80 MG Objective Vital Signs Date Time Temp Pulse Resp B/P Pulse Ox O2 Delivery O2 Flow Rate FiO2 10/18/16 22:15 36.6 84 22 188/116 94 3.0 10/18/16 21:58 36.5 78 22 179/114 91 3.0 10/18/16 21:33 36.6 80 24 203/110 96 3.0 10/18/16 21:02 36.5 83 22 179/117 91 3.0 10/18/16 20:27 36.6 84 22 176/86 91 3.0 10/18/16 20:16 89 185/69 10/18/16 20:14 36.6 88 24 175/113 90 3.0 10/18/16 20:00 36.5 93 24 169/84 89 3.0 10/18/16 20:00 Nasal Cannula 3.0 10/18/16 19:50 113 16 92 Nasal Cannula 3.0 10/18/16 19:45 36.5 89 19 163/83 100 3.0 10/18/16 19:43 36.4 88 22 147/87 97 3.0 10/18/16 19:04 36.8 90 26 145/84 91 Nasal Cannula 3.0 10/18/16 16:00 Nasal Cannula 3.0 10/18/16 15:49 36.5 90 22 186/113 91 Nasal Cannula 2.0 10/18/16 14:15 86 16 93 Nasal Cannula 2.0 10/18/16 12:57 36.5 86 20 152/87 95 Nasal Cannula 3.0 10/18/16 12:00 Nasal Cannula 3.0 10/18/16 08:01 36.4 75 28 162/105 97 Nasal Cannula 3.0 10/18/16 08:00 Nasal Cannula 3.0 10/18/16 04:00 Nasal Cannula 3.0 10/18/16 00:00 Nasal Cannula 3.0 10/17/16 23:50 36.4 97 18 157/97 91 Nasal Cannula 3.0 Physical Exam General Appearance: WD/WN Laboratory Results Results Past 24 Hours Test 10/18/16 02:09 10/18/16 06:35 10/18/16 07:15 10/18/16 12:28 Range/Units Hemoglobin 8.8 8.1 12.0-16.0 g/dL Hematocrit 27.9 26.3 37-47 % Total Creatine Kinase 100 104 26-192 U/L Creatine Kinase MB 4.1 3.5 0.5-3.6 ng/ml Creatine Kinase MB Ratio 4.1 3.4 0-3.0 Troponin I 2.690 2.650 0-0.045 ng/ml Bedside Glucose 187 178 70-90 mg/dl White Blood Count 8.44 4.8-10.8 K/uL Red Blood Count 3.07 4.2-5.4 M/uL Mean Corpuscular Volume 85.7 80-100 fL Mean Corpuscular Hemoglobin 26.4 25-34 pg Mean Corpuscular Hemoglobin Concent 30.8 32-36 g/dl Platelet Count 427 130-400 K/uL Mean Platelet Volume 10.0 7.4-10.4 fL Neutrophils (%) (Auto) 79.3 % Lymphocytes (%) (Auto) 15.5 % Monocytes (%) (Auto) 2.0 % Eosinophils (%) (Auto) 1.4 % Basophils (%) (Auto) 0.5 % Neutrophils # (Auto) 6.69 1.4-6.5 K/uL Lymphocytes # (Auto) 1.31 1.2-3.4 K/uL Monocytes # (Auto) 0.17 0.11-0.59 K/uL Eosinophils # (Auto) 0.12 0-0.5 K/uL Basophils # (Auto) 0.04 0-0.2 K/uL RDW Standard Deviation 59.9 36.4-46.3 fL RDW Coefficient of Variation 19.0 11.5-14.5 % Immature Granulocyte % (Auto) 1.3 % Immature Granulocyte # (Auto) 0.11 0.00-0.02 K/uL Nucleated RBC Absolute Count (auto) 0.08 0-0 K/uL Nucleated Red Blood Cells % 1.0 % Polychromasia 1+ Hypochromasia PRESENT Prothrombin Time 11.7 9.0-12.0 SECONDS Prothromb Time International Ratio 1.1 0.9-1.1 Sodium Level 137 136-145 mmol/L Potassium Level 4.4 3.5-5.1 mmol/L Chloride Level 104 98-107 mmol/L Carbon Dioxide Level 24 21-32 mmol/L Anion Gap 9.0 3-11 mmol/L Blood Urea Nitrogen 34 7-18 mg/dl Creatinine 2.20 0.60-1.20 mg/dl Est Creatinine Clear Calc Drug Dose 27.8 ml/min Estimated GFR () 25.0 Estimated GFR (Non- 21.5 BUN/Creatinine Ratio 15.2 10-20 Random Glucose 181 70-99 mg/dl Calcium Level 8.8 8.5-10.1 mg/dl Total Bilirubin 0.4 0.2-1 mg/dl Aspartate Amino Transf (AST/SGOT) 16 15-37 U/L Alanine Aminotransferase (ALT/SGPT) 17 12-78 U/L Alkaline Phosphatase 103 45-117 U/L Total Protein 8.5 6.4-8.2 gm/dl Albumin 2.5 3.4-5.0 gm/dl Globulin 6.0 2.5-4.0 gm/dl Albumin/Globulin Ratio 0.4 0.9-2 Triglycerides Level 120 0-150 mg/dl Cholesterol Level 229 0-200 mg/dl HDL Cholesterol 36 mg/dl LDL Cholesterol, Calculated 169 mg/dl VLDL Cholesterol, Calculated 24 mg/dl Cholesterol/HDL Ratio 6.4 Test 10/18/16 13:56 10/18/16 16:16 10/18/16 20:07 Range/Units Hemoglobin 8.0 12.0-16.0 g/dL Hematocrit 25.7 37-47 % Total Creatine Kinase 422 407 26-192 U/L Creatine Kinase MB 3.9 3.2 0.5-3.6 ng/ml Creatine Kinase MB Ratio 0.9 0.8 0-3.0 Troponin I 2.760 2.900 0-0.045 ng/ml Pro-B-Type Natriuretic Peptide 37201 0-900 pg/ml Bedside Glucose 169 70-90 mg/dl Procalcitonin 0.14 0-0.5 ng/mL Assessment and Plan 71 year old female with lung CA s/p lobectomy, COPD, smoking history admitted with anemia secondary to potential GI bleed, elevated troponin, acute on chronic renal insufficiency and COPD exacerbation vs pneumonia. Anemia secondary to GI bleed - FOBT positive - Likely secondary to combination of steroid and Motrin use - Notice acute drop in Hb from Apr 2016 to May 2016 on out patient visits from 11.8 to 9.8. - In view of elevated troponin, cardiology recommend blood transfusion - Patient undecided because eugenia is Voodoo, and patient may want to pursue similarly eventually Elevated troponin - Patient having intermittent chest pain for last 2 weeks - Continue to trend upwards, although in huerta decreased - Echo recently performed in August 2016 - Repeat echo tomorrow - EKG done at 1:30 similar to the one from earlier in the ED, however with wondering baseline ? ST changes, repeat EKG and continue to trend troponin Acute on chronic renal insufficiency - Creatinine bumped to 4.6 in [facility] - Out patient creatined documented as _ - unsure of baseline - Current creatine levels trended to determine. COPD exacerbation vs pneumonia. - Patient has been on recurrent steroids, getting sick whenever she is off of them - Patient recently discharged from [facility] last week with treatment for pneumonia - Out patient PFTs show no COPD - CXR: Cardiomegaly with evidence of congestive failure and interstitial edema. Superimposed pneumonia would be impossible to exclude. No large pleural effusion is seen - CT chest looks clear - official report pending - Patient placed on vancomycin and zosyn for pneumonia treatment - However, in view of imaging, non-systemic symptoms, and recent pneumonia treatment, unlikely to be pneumonia - Thus antibiotics discontinued Chronic Hypoxemia - Likely secondary to lobectomy for cancer - On baseline 3L O2 DM - Lantus held - Patient started on sliding scale and BSG CHF - on spironolactone Dispo: - Telemetry Code status: - Full code Resident Physician Supervision Note: I interviewed and examined the patient. Discussed with Dr. Díaz and agree with findings and plan as documented in the note. Any exceptions or clarifications are listed here: None Documented By: Arcadio Townsend ~1hr in room with pt/family. sob and chest pain improved. extensively reviewed HPI of last few weeks, d/w cardiology. reviewed labs, CXR, CT chest. HPI and ROS otherwise as above vitals noted, pleasant but fatigued appearing, decreased BS R sided and coarse L but no focal findings no r/r/w good effort no accessory muscle use. odd juxtaposition of a mild appearance of conversational dyspnea but also talks extensively and at length without really stopping to catch breath. ~1+ b/l LE edema a/p sob/chest pain/?ARF vs CKD (vs AYLEEN on CKD), elevated troponin, edema ---ddx being fairly broad. silent WA w subsequent CHF and renal failure could fit - but doesn't appear overtly in CHF. ARF from diuresis and "high grade troponin spill" with poor clearance possible w baseline comorbidities. acute respiratory illness (but with lack of infiltrate likely more bronchitis type picture than true pneumonia) with septic/metabolic stress causing demand ischemia and then ARF also possible. anemia from GI blood loss from NSAIDs and asa likely also a strong compounding factor of comorbidity (driving up demand ischemia and poor renal perfusion) but without compromised hemodynamics - doubt definitive. transfuse 1 unit if she allows, await echo, continue to provide aggressive supportive care, trend labs. ~1hr in the room, additional ~1hr reviewing case w R1, in addition to separate time reviewing case on my own. Continued [facility] stay due to: abnormal vital signs, multiple IV medications needed
[2016-10-18] MEDS: BUDESONIDE 0.5 MG/2 ML VIAL (PULMICORT) INH SCH ×2 (14:15→19:49)
[2016-10-18 14:24] LABS: HEMATOCRIT 25.7 % (37-47)
[2016-10-18 14:56] LABS: CKMB/CK RATIO 0.9 (0-3.0)
--- NOTE | 2016-10-18 16:39 | Pharmacy Progress Note ---
Pharmacy Antibiotic Consult Date of Service: Oct 18, 2016. Pharmacy Dosing Scope Pharmacy is consulted to initiate vancomycin and zosyn IV dosing therapy, order appropriate labs and adjust drug dose/frequency. Subjective The patient is a 71 year old female admitted on Oct 17, 2016 at 20:11. Objective Height (Feet): 5 Height (Inches): 2.00 Weight (Kilograms): 118.400 Lab Results (24hrs): Laboratory Tests Test 10/17/16 17:27 10/18/16 07:15 BUN/Creatinine Ratio 15.8 15.2 Blood Urea Nitrogen 38 mg/dl 34 mg/dl Creatinine 2.40 mg/dl 2.20 mg/dl White Blood Count 19.02 K/uL 8.44 K/uL Red Blood Count 3.32 M/uL 3.07 M/uL Hemoglobin 8.9 g/dL 8.1 g/dL Hematocrit 28.4 % 26.3 % Mean Corpuscular Volume 85.5 fL 85.7 fL Mean Corpuscular Hemoglobin 26.8 pg 26.4 pg Mean Corpuscular Hemoglobin Concent 31.3 g/dl 30.8 g/dl Platelet Count 448 K/uL 427 K/uL Mean Platelet Volume 9.5 fL 10.0 fL Neutrophils (%) (Auto) 79.3 % Lymphocytes (%) (Auto) 15.5 % Monocytes (%) (Auto) 2.0 % Eosinophils (%) (Auto) 1.4 % Basophils (%) (Auto) 0.5 % Neutrophils # (Auto) 6.69 K/uL Lymphocytes # (Auto) 1.31 K/uL Monocytes # (Auto) 0.17 K/uL Eosinophils # (Auto) 0.12 K/uL Basophils # (Auto) 0.04 K/uL Assessment & Plan Patient started on vancomycin and zosyn empirically for possible PNA. Vancomycin: * LD of 2200 mg x 1 (~20 mg/kg) given last evening * Will redose today with 1000 mg iv q 24 hrs (~9 mg/kg) - was less aggressive with dosing due to elevated BMI and risk of accumulation (BMI~44 kg/m2) * Estimated kinetics: t1/2~26 hrs, ke ~0.0268 hr-1, CrCl ~27 ml/min * If abx are to be continued >48 hrs would recommend obtaining a level Zosyn: * 4.5 gm iv q 8 hrs - appropriate for patients with elevated BMI>35 kg/m2 and CrCl >20 ml/min) Pharmacy will continue to follow and will adjust dose/frequency as necessary. Thank you
[2016-10-18] MEDS ORDERED: ATORVASTATIN 40 MG TAB PO ONE (16:45)
[2016-10-18] MEDS ORDERED: METOPROLOL TARTRATE 25 MG TAB PO ONE (16:45)
--- NOTE | 2016-10-18 18:10 | CARDIOLOGY CONSULTATION ---
DATE OF CONSULTATION: 10/18/2016 REFERRING PHYSICIAN: Guillermo Pulliam MD. ATTENDING PHYSICIAN: Arcadio Townsend DO. CONSULTATION: Wagner Ruiz MD. FAMILY PHYSICIAN: Brett Dela Cruz MD. HISTORY OF PRESENT ILLNESS: The patient is a 71-year-old white female. History is obtained from the patient, friends who are in attendance at the time of my visit, outpatient electronic medical records, and the electronic medical records from this admission. The patient is noncooperative with questioning. Her friends who are with her states that she is usually not like status. They attributed to lorazepam, which she received overnight. The patient denies to me any chest pain or shortness of breath. She denied any pain anywhere in her body. She did complain of leg edema. This has been present for at least the past week. Other than answering those questions, she refused to answer any other my questions. The patient's friend states that she has been using supplemental oxygen throughout the day for the past week. Normally, she does not use oxygen throughout the day. This Emergency Department records show that at the time of admission, she complained of progressively worsening dyspnea as well as chest discomfort for 2 weeks. She had complained of a cough productive of yellow sputum. The chest discomfort was described as retrosternal. Exacerbated by activity. Improvement with rest. She reported radiation of discomfort down her left arm. No pleuritic component to it. She also complained of orthopnea. No complaints of palpitations or syncope. It was reported that she had been seen at [facility] last week. She was referred there by her primary care provider because of a low hemoglobin. Her hemoglobin at that time was 9.4. She was found to have a creatinine value at that time of 4.3; she does have a history of chronic kidney disease. It was recommended to her that she be transferred from [place] to [facility]. She signed out AMA. The patient states that she does not want to have any more procedures performed now. She states she wants to go home. Medical records from outpatient pulmonary this is with Dr. Juan Daniel Christiansen of the [facility] reveal a significant past medical history. PAST MEDICAL HISTORY: 1. COPD. 2. Dyslipidemia. 3. History of squamous cell carcinoma of the lung. Status post right upper lobe resection September 2010 in [facility]. It was stage IIB [id number]. She received chemotherapy with Taxol and carboplatin. 4. Diabetes mellitus. 5. Gastroesophageal reflux disease. 6. Hyperuricemia and gout. 7. Hypertension. 8. Chronic kidney disease. 9. History of allergic rhinitis. 10. History of urinary incontinence. 11. Osteoarthritis. 12. Depression and anxiety. 13. Obesity. PAST SURGICAL HISTORY: 1. Status post hysterectomy. 2. Status post right upper lobe lobectomy. SOCIAL HISTORY: The patient lives with one of her daughters. She is a . She previously smoked cigarettes. A [address] smoking history. She stopped smoking cigarettes in 2004. Does not drink alcohol. FAMILY HISTORY: Her father at age 26 from a work accident. Mother at age 83 from a CVA. Sister with history of asthma. She has 4 sons and 1 daughter. No chronic medical illnesses in them. ALLERGIES: CHLORASEPTIC SPRAY WHICH CAUSED ANGIOEDEMA. OUTPATIENT MEDICATIONS: At the time of 07/16/2016 pulmonary clinic visit were: Allopurinol 300 mg daily, aspirin 81 mg daily, diazepam 2 mg 1 tablet 3-4 times daily, Flonase 50 mcg per actuation 2 sprays daily, hydrocodone/acetaminophen 10/325 one tablet t.i.d. p.r.n., Lantus insulin, metoprolol tartrate 25 mg b.i.d., magnesium oxide 400 mg 2 tablets q.i.d., MiraLax powder p.r.n., Nasonex spray 2 sprays each nostril twice a day, Os-Solomon with vitamin D 2 tablets t.i.d., omeprazole 40 mg daily, Phenergan p.r.n. nausea, ProAir p.r.n., spironolactone 25 mg daily. REVIEW OF SYSTEMS: 1. Other than what is reported in history, I was not able to obtain any other review of systems from the patient. She would not cooperate with answering the questions. She was quite emotional during my visit. This included crying. The admission history and physical reports that other than that reported above, 10-point review of systems was negative. She does have a history of chronic back pain. CURRENT MEDICATIONS: Metoprolol tartrate 25 mg p.o. t.i.d., spironolactone 25 mg daily, Pulmicort 0.5 mg inhaled b.i.d., piperacillin/tazobactam 4.5 grams IV q. 8 hours, Xopenex nebulizer 1.25 mg q. 6 hours, diazepam 2 mg p.o. t.i.d., metoprolol tartrate 5 mg IV q. 4 hours p.r.n. hypertension, pantoprazole 40 mg IV q. 5 hours, nitroglycerin ointment 1 inch q. 6 hours. The patient on this admission had received intravenous Solu-Medrol, 324 mg of chewable aspirin, DuoNeb, and a dose of vancomycin of 2200 mg intravenously. PHYSICAL EXAMINATION: GENERAL: The patient is lying in her bed. She is crying. She is agitated. She is lying on her side. VITAL SIGNS: At the time of my exam: Oral temperature 36.5, pulse 86, blood pressure 152/87, pulse oximetry 95% on 3 liters per minute nasal cannula oxygen. On this admission, she has had blood pressure reported to be as high as 204/127. She has had pulse rates recorded as high as 106 beats per minute. HEAD: Normal. EYES: Anicteric. NECK: Thick and short neck. Unable to evaluate jugular venous pressure. With her body position, unable to evaluate her carotid pulses. She would not turn in the bed. LUNGS: Diffuse rhonchi. Scattered wheezes. No definite rales. HEART: Distant heart sounds. PMI not palpable. No lifts or heaves. Regular rate and rhythm. S1 and S2 normal. No murmur, S2, or rub heard. ABDOMEN: Obese. Soft. Nontender. Decreased bowel sounds. No bruits. No palpable masses or organomegaly. EXTREMITIES: 2+ lower leg, ankle, and pedal edema bilaterally. No erythema or increased warmth of the lower legs. No cyanosis or clubbing. NEUROLOGIC: The patient is awake. She is alert and oriented x3. PSYCHIATRIC: Emotional and agitated affect. DATA: An echocardiogram was performed as an outpatient on 08/23/2016. She had mild concentric LVH, normal LV systolic function with ejection fraction 55-60%, type 1 LV diastolic dysfunction. The right ventricle was reported to be normal size. No significant tricuspid regurgitation was noted. The tricuspid valve was not well visualized. The inferior vena cava appeared to be normal size. Normal estimated central venous pressure. Electrocardiogram October 17 at 17:37 revealed normal sinus rhythm, rate of 90 beats per minute. Voltage criteria for left ventricular hypertrophy. Inferior infarct. ST depressions and T-wave inversions in leads II, III, AVF, V3-V6 consistent with ischemia. Electrocardiogram today with sinus rhythm, voltage for LVH, ST and T-wave abnormalities consistent with inferior and anterolateral ischemia. Chest x-ray revealed increased heart size. Pulmonary vascular congestion. Evidence of interstitial edema. No pleural effusion noted. The patient apparently had a CT scan performed last evening. No report available for review. Hemoglobin on admission was 8.9. Hemoglobin today 8.0. Hematocrit today 25.7. WBC 8.44, platelet count 427. Normal MCV and MCH and red blood cell indices. INR today 1.1. PTT last evening 23.6. Metabolic profile today was sodium 137, potassium 4.4, chloride 104, carbon dioxide 24, BUN 34, creatinine 2.2, random glucose 181. AST 16. ALT 17. Serum albumin 2.5. Lipid profile with triglycerides 120, total cholesterol 229, calculated LDL 169, HDL 36. CK totals have been 96, 100, 104, and 422. Respective CK-MBs of 4.6, 4.1, 3.5, and 3.9. Respective CK-MB ratios of 4.8, 4.1, 3.4 and 0.9. Troponin I's have been 2.470, 2.520, 2.690, 2.650, and 2.760. The admission BUN was 38 and creatinine 2.40. Her stool was heme positive on exam in the Emergency Department. ASSESSMENT: 1. Severe anemia with evidence of blood in her stool. She does have a history of chronic anemia. Her hemoglobin has decreased from last week. 2. Chronic dyspnea, worsened over the past few weeks. This could be related to her decreased hemoglobin. She does have chronic obstructive pulmonary disease and is status post right upper lobectomy. She has wheezing on exam. Cannot exclude a component of diastolic heart failure. She does have a history of left ventricular diastolic dysfunction. Normal left ventricular systolic function. This is based upon an echocardiogram performed in August 2016. A BNP was ordered by me today. Her pro-B natriuretic peptide is elevated at 20,020. 3. No complaints of chest pain to me. She did complain of episodes of exertionally precipitated chest pain on her Emergency Department history and physical last evening. No history of coronary artery disease. She does have significant coronary artery disease risk factors including hypertension, dyslipidemia, diabetes mellitus, and prior smoking history. Her electrocardiogram shows inferior and anterolateral ST and T wave abnormalities consistent with ischemia. The troponin I's are elevated. Suspect that she does have underlying coronary artery disease. Certainly, with her elevated blood pressure and pulse in the setting of decreased hemoglobin, she could have demand myocardial ischemia. This could result in elevated cardiac enzymes even if she had no underlying obstructive coronary artery disease. 4. Probable acute diastolic congestive heart failure. This is exacerbated by her hypertension and elevated heart rate. She also could have a component of myocardial ischemia which would worsen left ventricular diastolic function. 5. Chronic kidney disease. Elevated BUN and creatinine. 6. Leg edema. This could be related to her low serum albumin and elevated right heart pressures. Cannot exclude contribution of heart failure. Despite the peripheral edema in her legs, she has dry mucous membranes at the time of my exam. Unable to evaluate jugular venous pressure secondary to her neck size and body position. 7. His history of hypertension. Blood pressure is markedly elevated on this admission. 8. Dyslipidemia. Markedly elevated LDL. Low HDL. 9. Elevated atherosclerotic cardiovascular disease risk. Utilizing her blood pressure, cholesterol values, and medical history, her calculated 10-year atherosclerotic cardiovascular disease risk is 71.7%. Will optimal risk factor modification is reduced to 9.7%. Based on this risk high dosing statin is recommended. RECOMMENDATIONS: 1. In light of her elevated troponin and abnormal electrocardiogram and significant anemia, would recommend transfusion of 2 units of packed red blood cells. 2. Would give intravenous furosemide with the transfusion. 3. Would use intravenous labetalol 20 mg IV q. 6 hours p.r.n. systolic blood pressure greater than 160 or diastolic pressure greater than 90. 4. Increase metoprolol to 50 mg b.i.d. 5. The patient did not cooperate with performance of an echocardiogram today. If she is in a better mental state tomorrow, attempt to have the echo performed. Reassess left ventricular systolic function, attempt to assess right ventricular function, and assess intracardiac pressures. Specifically, estimated right ventricular systolic pressure and central venous pressure. If there is evidence on the echo of elevated central venous pressure, would then increase her diuretic regimen. 6. Repeat electrocardiogram tomorrow. Repeat cardiac enzymes tomorrow. 7. The patient has no indications for an emergency cardiac catheterization. She is not having any unstable anginal symptoms at this time. She is not having an ST elevation myocardial infarction. She would be at increased risk for contrast-induced nephrotoxicity, based on her history diabetes mellitus and chronic kidney disease. Would recommend optimization of blood pressure and heart rate control and improvement in her hemoglobin. If despite optimal control of blood pressure and heart rate and increased in hemoglobin, if she has anginal symptoms, would then consider further evaluation for myocardial ischemia. Would first perform a Lexiscan pharmacologic nuclear perfusion scan to assess for abound and extended myocardial ischemia. At this time, would attempt to treat the patient medically for her presumed underlying coronary artery disease. 9. Would start her on high dose atorvastatin or rosuvastatin. The above assessment and plan will be discussed with the patient's hospitalist team. Her case was discussed with them earlier today by me. It is listed in the patient's history and on her admission diagnosis that she has "high output cardiac failure." This diagnosis can only be based upon hemodynamics obtained invasively with a right heart catheterization and a cardiac output. Based on current available information could state that the patient has left ventricular diastolic dysfunction and possible acute diastolic heart failure. There is no documentation in her records that she has undergone a right heart catheterization documenting a high cardiac output. As stated above, she does have clinical variables at this time which would exacerbate left ventricular diastolic dysfunction. This includes myocardial ischemia, elevated blood pressure, and elevated heart rate. DIXON
[2016-10-18 21:11] LABS: CKMB/CK RATIO 0.8 (0-3.0)
[2016-10-18] MEDS: METOPROLOL TARTRATE 25 MG TAB PO SCH (22:08)
[2016-10-18] MEDS ORDERED: NURSING VERBAL MED ORDER ONE (22:45)
[2016-10-18] MEDS ORDERED: FUROSEMIDE 40 MG/4 ML VIAL IV SCH (23:00)
[2016-10-19] VITALS (12 sets, daily range): BP systolic 102–182; BP diastolic 51–116; PULSE 64–85; TEMP 36.4–37; O2SAT 4–97
[2016-10-19] MEDS: LEVALBUTEROL 1.25MG/0.5ML NEB INH SCH ×4 (02:14→19:38)
[2016-10-19] MEDS: PANTOprazole INJ 40 MG in DEXTROSE 5% 100ML IV SCH ×5 (03:08→23:08)
[2016-10-19 06:09] LABS: BASO % 0.3 %; BASO ABS # 0.03 K/uL (0-0.2); COMPLETE YES; EOS % 2.1 %; HEMATOCRIT 29.5 % (37-47); IG% 0.3 %; LYMPH % 20.4 %; LYMPH ABS # 2.21 K/uL (1.2-3.4); MEAN CORPUSCULAR HEMOGLOBIN 26.5 pg (25-34); MEAN CORPUSCULAR HGB CONC 31.2 g/dl (32-36); MEAN PLATELET VOLUME 10.1 fL (7.4-10.4); MONO % 12.1 %; NEUT % 64.8 %; PLATELET COUNT 446 K/uL (130-400); RED BLOOD COUNT 3.47 M/uL (4.2-5.4); WHITE BLOOD COUNT 10.81 K/uL (4.8-10.8)
[2016-10-19 06:18] LABS: INR 1.1 (0.9-1.1)
[2016-10-19 06:58] LABS: ALB/GLOB RATIO 0.5 (0.9-2); CALCIUM 9.1 mg/dl (8.5-10.1); CREATININE 2.6 mg/dl (0.60-1.20); POTASSIUM 3.5 mmol/L (3.5-5.1)
[2016-10-19] MEDS: BUDESONIDE 0.5 MG/2 ML VIAL (PULMICORT) INH SCH ×2 (07:10→19:38)
[2016-10-19] MEDS: ATORVASTATIN 40 MG TAB PO SCH (08:25)
[2016-10-19] MEDS: DIAZEPAM 2MG TAB PO SCH ×3 (08:26→20:30)
[2016-10-19] MEDS: METOPROLOL TARTRATE 25 MG TAB PO SCH ×3 (08:26→20:30)
[2016-10-19] MEDS: SPIRONOLACTONE 25 MG TAB PO SCH (08:26)
--- NOTE | 2016-10-19 09:58 | Gastroenterology Progress Note ---
Progress Note Date of Service: Oct 19, 2016 Subjective Pt evaluation today including: conversation w/ patient, physical exam, lab review Patient is a 71 yo female who presented to the hospital for SOB & lower extremity edema. She is anemic. Stools were heme positive. She has no active signs of bleeding. She reports shortness of breath today. She is very emotional about her struggles with breathing. She reports that she has been taking Prednisone as an outpatient for quite some time and is frustrated that her breathing has not improved. She reports she is considering converting to be a Jehov[employer] Witness so she is not sure she would consider a blood transfusion. She denies epigastric pain. She denies overt GI bleeding. She is no longer taking NSAIDs. Her H/H is 9.2/29.5. Review of Systems Constitutional: + fatigue Eyes: No problem reported Respiratory: + cough, + dyspnea on exertion, + shortness of breath, + wheezing Cardiac: No chest pain Abdomen: No GI bleeding, No constipation, No diarrhea, No nausea, No pain, No vomiting Musculoskeletal: No joint pain Psych: + anxiety, + depression symptoms Skin: No problem reported Medications Current Inpatient Medications Medications (Trade) Dose Ordered Sig/Lucas Route Start Time Stop Time Status Last Admin Dose Admin Pantoprazole Sodium/Dextrose (Protonix Inj/D5 100ml) 100 ml @ 20 mls/hr Q5H IV 10/17/16 20:30 11/16/16 20:29 10/19/16 07:46 20 MLS/HR Budesonide (Pulmicort Respules 0.5MG/ 2ML Neb Soln) 0.5 mg BIDR INH 10/18/16 08:00 11/17/16 07:59 10/19/16 07:10 0.5 MG Spironolactone (Aldactone Tab) 25 mg DAILY PO 10/18/16 09:00 11/17/16 08:59 10/19/16 08:26 25 MG Diazepam (Valium Tab) 2 mg TID PO 10/17/16 21:00 11/16/16 20:59 10/19/16 08:26 2 MG Metoprolol Tartrate (Lopressor Iv) 5 mg Q4H PRN IV 10/17/16 22:45 11/16/16 22:44 10/18/16 20:16 5 MG Levalbuterol (Xopenex 1.25MG/ 0.5ML Neb) 1.25 mg Q6R INH 10/18/16 03:00 11/17/16 02:59 10/19/16 07:10 1.25 MG Vancomycin HCl (Consult) 1 ea UD PRN N/A 10/18/16 00:30 10/20/16 00:29 Metoprolol Tartrate (Lopressor Tab) 25 mg TID PO 10/18/16 21:00 11/17/16 20:59 10/19/16 08:26 25 MG Atorvastatin Calcium 80 mg 80 mg QAM PO 10/19/16 09:00 11/18/16 08:59 10/19/16 08:25 80 MG Vancomycin HCl/ Sodium Chloride (Vancomycin Inj/ Nss 250ml) 270 ml @ 125 mls/hr DAILY@2300 IV 10/18/16 23:00 10/20/16 00:29 10/19/16 03:08 125 MLS/HR Objective Vital Signs Date Time Temp Pulse Resp B/P Pulse Ox O2 Delivery O2 Flow Rate FiO2 10/19/16 08:00 Nasal Cannula 3.0 10/19/16 07:40 179/116 10/19/16 07:36 36.5 75 28 182/113 97 Nasal Cannula 3.0 10/19/16 07:10 84 16 92 Nasal Cannula 3.0 10/19/16 04:00 Nasal Cannula 3.0 10/19/16 03:51 36.7 75 20 102/74 93 Nasal Cannula 2.0 10/19/16 02:14 78 16 96 Nasal Cannula 3.0 10/19/16 00:21 36.9 85 20 178/51 96 Nasal Cannula 3.0 10/19/16 00:00 Nasal Cannula 3.0 10/18/16 22:15 36.6 84 22 188/116 94 3.0 10/18/16 21:58 36.5 78 22 179/114 91 3.0 10/18/16 21:33 36.6 80 24 203/110 96 3.0 10/18/16 21:02 36.5 83 22 179/117 91 3.0 10/18/16 20:27 36.6 84 22 176/86 91 3.0 10/18/16 20:16 89 185/69 10/18/16 20:14 36.6 88 24 175/113 90 3.0 10/18/16 20:00 36.5 93 24 169/84 89 3.0 10/18/16 20:00 Nasal Cannula 3.0 10/18/16 19:50 113 16 92 Nasal Cannula 3.0 10/18/16 19:45 36.5 89 19 163/83 100 3.0 10/18/16 19:43 36.4 88 22 147/87 97 3.0 10/18/16 19:04 36.8 90 26 145/84 91 Nasal Cannula 3.0 10/18/16 16:00 Nasal Cannula 3.0 10/18/16 15:49 36.5 90 22 186/113 91 Nasal Cannula 2.0 10/18/16 14:15 86 16 93 Nasal Cannula 2.0 10/18/16 12:57 36.5 86 20 152/87 95 Nasal Cannula 3.0 10/18/16 12:00 Nasal Cannula 3.0 Physical Exam General Appearance: + obese Eyes: normal inspection, PERRL ENT: hearing grossly normal Respiratory/Chest: + decreased breath sounds, + wheezing Cardiovascular: regular rate, rhythm Abdomen: normal bowel sounds, non tender, soft Extremities: non-tender Neurologic/Psych: alert, oriented x 3 Skin: normal color Laboratory Results Last 24 Hours Test 10/18/16 12:28 10/18/16 13:56 10/18/16 16:16 10/18/16 20:07 Bedside Glucose 178 mg/dl 169 mg/dl Hemoglobin 8.0 g/dL Hematocrit 25.7 % Total Creatine Kinase 422 U/L 407 U/L Creatine Kinase MB 3.9 ng/ml 3.2 ng/ml Creatine Kinase MB Ratio 0.9 0.8 Troponin I 2.760 ng/ml 2.900 ng/ml Pro-B-Type Natriuretic Peptide 96045 pg/ml Procalcitonin 0.14 ng/mL Test 10/18/16 20:52 10/19/16 05:12 10/19/16 06:35 Bedside Glucose 238 mg/dl 125 mg/dl White Blood Count 10.81 K/uL Red Blood Count 3.47 M/uL Hemoglobin 9.2 g/dL Hematocrit 29.5 % Mean Corpuscular Volume 85.0 fL Mean Corpuscular Hemoglobin 26.5 pg Mean Corpuscular Hemoglobin Concent 31.2 g/dl Platelet Count 446 K/uL Mean Platelet Volume 10.1 fL Neutrophils (%) (Auto) 64.8 % Lymphocytes (%) (Auto) 20.4 % Monocytes (%) (Auto) 12.1 % Eosinophils (%) (Auto) 2.1 % Basophils (%) (Auto) 0.3 % Neutrophils # (Auto) 7.00 K/uL Lymphocytes # (Auto) 2.21 K/uL Monocytes # (Auto) 1.31 K/uL Eosinophils # (Auto) 0.23 K/uL Basophils # (Auto) 0.03 K/uL RDW Standard Deviation 56.9 fL RDW Coefficient of Variation 18.5 % Immature Granulocyte % (Auto) 0.3 % Immature Granulocyte # (Auto) 0.03 K/uL Nucleated RBC Absolute Count (auto) 0.06 K/uL Nucleated Red Blood Cells % 0.6 % Prothrombin Time 12.0 SECONDS Prothromb Time International Ratio 1.1 Sodium Level 138 mmol/L Potassium Level 3.5 mmol/L Chloride Level 100 mmol/L Carbon Dioxide Level 25 mmol/L Anion Gap 13.0 mmol/L Blood Urea Nitrogen 34 mg/dl Creatinine 2.60 mg/dl Est Creatinine Clear Calc Drug Dose 23.4 ml/min Estimated GFR () 20.4 Estimated GFR (Non- 17.6 BUN/Creatinine Ratio 13.0 Random Glucose 127 mg/dl Calcium Level 9.1 mg/dl Total Bilirubin 0.7 mg/dl Aspartate Amino Transf (AST/SGOT) 23 U/L Alanine Aminotransferase (ALT/SGPT) 21 U/L Alkaline Phosphatase 88 U/L Troponin I 3.600 ng/ml Total Protein 8.9 gm/dl Albumin 2.8 gm/dl Globulin 6.1 gm/dl Albumin/Globulin Ratio 0.5 Assessment and Plan Patient is a 71 yo female with CHF, COPD, & anemia. Her H/H is improving to 9.2/ 29.5. She is not noticing any obvious GI bleeding. 1) Recommend Protonix 40 mg BID to treat any potential stomach ulcer that may have contributed to anemia. 2) H/H improving. Continue to monitor. 3) Continue to optimize pulmonary status. Patient has not been completely cooperative with cardiac work-up. At present, she reports she is not compelled to even consider an outpatient GI work-up once her pulmonary symptoms improve. 4) Avoid NSAIDs. 5) Supportive care per primary team. Thank you for allowing us to participate in the care of this patient. Agree with RAZ [place] as above Abd: Soft, NT, ND, +BS Continue supportive care No overt GI bleeding Continue Protonix 40mg BID
--- NOTE | 2016-10-19 10:20 | CARDIOLOGY PROGRESS NOTE ---
DATE: 10/19/2016 SUBJECTIVE: The patient was seen by me this morning in the telemetry room. She states she is feeling better today and she has it over the past several days. Much better than yesterday. Her dyspnea has decreased. Her leg edema has decreased. She still has a cough. She states it is productive of yellow to green sputum. She describes occasional red streaks in the sputum. She had no orthopnea overnight. No PND. Mild lightheadedness when arising from bed. This was a brief duration lasting in only seconds. No palpitations. Her appetite is good. No abdominal pain or nausea. No fevers or chills. Dyspnea on exertion has improved compared to a few days ago. CURRENT MEDICATIONS: Atorvastatin 80 mg daily, metoprolol tartrate 25 mg t.i.d., spironolactone 25 mg daily, Pulmicort 0.5 mg b.i.d., Xopenex nebulizer 1.25 mg q. 6 hours, piperacillin/tazobactam 4.5 grams IV q. 8 hours, diazepam 2 mg p.o. t.i.d., and pantoprazole 40 mg IV q. 5 hours. ALLERGIES AND ADVERSE DRUG REACTIONS: LORAZEPAM AND PHENOL. PHYSICAL EXAMINATION: VITAL SIGNS: Oral temperature at 07:36 a.m. 36.5 and pulse 75. Blood pressure at that time was 182/113. Repeat blood pressure at 07:40 a.m. was 179/116. Pulse oximetry on 2 liters per minute nasal cannula oxygen 97%. GENERAL APPEARANCE: Shows the patient to be in no distress. NECK: Unable to accurately assess JVP secondary to neck size. There does not appear to be any significant jugular venous distention. LUNGS: Normal respiratory effort. Bibasilar rales. Scant expiratory wheezing in the left upper lung. No rhonchi. HEART: Distant heart sounds. Regular rate and rhythm. No murmur, gallop or rub. ABDOMEN: Soft. Nontender. No palpable masses or organomegaly. Normal bowel sounds. EXTREMITIES: 1+ pretibial edema. NEUROLOGIC: Alert and oriented x3. She can move all extremities. PSYCHIATRIC: Affect today is normal. DATA: No electrocardiogram performed today. LABORATORY DATA: Today with sodium 138, potassium 3.5, chloride 100, carbon dioxide 25, BUN 34, creatinine 2.60, and random glucose 127. Troponin I is 3.600. Albumin 2.8. CBC with WBC 10.1, hemoglobin 9.2, hematocrit 29.5, and platelet count 446. The patient received transfusion of 1 unit packed red blood cells last evening. Echocardiogram was not performed yesterday because the patient will not cooperate with it. She is agreeable to undergoing an echocardiogram today. Prior echocardiogram performed in August of 2016 revealed LV ejection fraction of 55%-60%. Type 1 LV diastolic dysfunction. ASSESSMENT: 1. Non-ST elevation myocardial infarction. Suspect secondary to demand ischemia. Elevated blood pressure and heart rate at the time of admission. This is also in the setting of decreased hemoglobin. The patient is at high risk for having underlying coronary artery disease. She has multiple coronary artery disease risk factors. No anginal symptoms. 2. Improvement in dyspnea since yesterday. Likely secondary to treatment for pulmonary infection as well as receiving diuretics. Also, the increased hemoglobin could be contributory to her improved dyspnea. She does have bibasilar rales on exam today. Her peripheral edema has decreased from yesterday. 3. Severe hypertension this morning. It was markedly elevated yesterday also. 4. Anemia. Improvement in her hemoglobin with transfusion of 1 unit packed red blood cells. Stool was heme positive in the Emergency Department. 5. Chronic kidney disease. BUN stable from yesterday. Creatinine slightly increased. RECOMMENDATIONS: 1. Obtain a repeat echocardiogram today. Reassess ventricular function. Assess intracardiac pressures. Attempt to assess central venous pressure. 2. Furosemide 40 mg IV today. 3. She needs to change in her antihypertensive regimen. Blood pressure is significantly elevated this morning. I would not use COLEMAN inhibitor and angiotensin receptor charles secondary to her renal insufficiency. If her echocardiogram shows continued normal LV systolic function, would start her on diltiazem 240 mg daily. This could improve her pressure as well as improved left ventricular diastolic function. I suspect her heart failure as acute diastolic heart failure.
[2016-10-19] MEDS ORDERED: DILTIAZEM HCL 120 MG CAPCR PO ONE (11:30)
--- NOTE | 2016-10-19 17:10 | ECHOCARDIOGRAM REPORT ---
*NOTICE TO RECEIVING [employer] This information is strictly Confidential and protected under [place] law. [place] law prohibits you from making any further disclosure of this information unless further disclosure is expressly permitted by the written consent of the person to whom it pertains or is authorized by law. A general authorization for the release of medical or other information is not sufficient for this purpose. Hospital accepts no responsibility if the information is made available to any other person, INCLUDING THE PATIENT. Interpretation Summary * Name: JETT LEZAMA Study Date: 10/19/2016 02:41 PM BP: 157/97 mmHg * Patient Location: C.2T\S\S229\S\2 HR: 85 * : 1945 (M/d/yyyy) Gender: Female Height: 62 in * Age: 71 yrs Ethnicity: [place] Weight: 242 lb * Ordering Physician: Génesis Kauffman * Referring Physician: Self, Referred * Performed By: Loretta Linn RDCS * * Reason For Study: Chest Pain * BSA: 2.1 m2 * -- Conclusions -- * 1. Technically limited study. Unable to use Definity. * 2. Grossly normal systolic function. LVEF 50-55%. Paradoxical septal motion. Grade I diastolic dysfunction. * 3. RV not well visualized. * 4. No significant valvular pathology. * 5. Dilated IVC suggestive of elevated CVP (RA Est 15 mmHg). * 6. No prior studies for comparison. Procedure Details * A complete two-dimensional transthoracic echocardiogram was performed (2D, M-mode, Doppler and color flow Doppler). * The study was technically difficult. * Patient declined Definity due to her sensitivity. Left Ventricle * The left ventricle is grossly normal size. * There is normal left ventricular wall thickness. * Ejection Fraction = 50-55%. * Paradoxical septal motion Right Ventricle * The right ventricle is not well visualized. Atria * The left atrial size is normal. * Right atrium not well visualized. * No ASD detected; PFO is not assessed. Mitral Valve * The mitral valve is grossly normal. * There is mild mitral annular calcification. * There is no mitral valve stenosis. * Significant mitral regurgitation is absent. Tricuspid Valve * The tricuspid valve is not well visualized. * Significant tricuspid regurgitation is absent. Aortic Valve * The aortic valve opens well. * No hemodynamically significant valvular aortic stenosis. * There is no significant aortic regurgitation. Pulmonic Valve * The pulmonary valve is inadequately visualized, but the Doppler data is adequate for interpretation. * There is no pulmonic valvular stenosis. * There is no pulmonic valvular regurgitation. Great Vessels * The aortic root and proximal ascending aorta are normal sized. Pericardium/Pleural * There is no pericardial effusion. Great Vessels * Normal inferior vena cava size and collapsability with sniff indicates a normal right atrial pressure of 3 mmHg Left Ventricular Diastolic Function * Grade I diastolic dysfunction, (abnormal relaxation pattern). MMode 2D Measurements and Calculations IVSd 1.1 cm IVSs 1.3 cm LVIDd 4.6 cm LVIDs 3.3 cm LVPWd 0.98 cm LVPWs 1.4 cm IVS/LVPW 1.1 FS 29.2 % EDV(Teich) 98.4 ml ESV(Teich) 43.3 ml EF(Teich) 56.0 % EDV(cubed) 98.7 ml ESV(cubed) 35.1 ml EF(cubed) 64.4 % % IVS thick 17.4 % % LVPW thick 44.2 % LV mass(C)d 172.2 grams LV mass(C)dI 83.1 grams/m\S\2 LV mass(C)s 152.5 grams LV mass(C)sI 73.6 grams/m\S\2 SV(Teich) 55.1 ml SI(Teich) 26.6 ml/m\S\2 SV(cubed) 63.6 ml SI(cubed) 30.7 ml/m\S\2 Ao root diam 2.7 cm Ao root area 5.5 cm\S\2 ACS 1.8 cm LA dimension 2.7 cm LA/Ao 1.0 LVAd ap4 24.6 cm\S\2 LVLd ap4 7.5 cm EDV(MOD-sp4) 74.4 ml EDV(sp4-el) 68.6 ml LVAs ap4 16.4 cm\S\2 LVLs ap4 7.1 cm ESV(MOD-sp4) 36.6 ml ESV(sp4-el) 32.2 ml EF(MOD-sp4) 50.8 % EF(sp4-el) 53.0 % LVAd ap2 18.3 cm\S\2 LVLd ap2 6.8 cm EDV(MOD-sp2) 45.2 ml EDV(sp2-el) 41.7 ml LVAs ap2 13.3 cm\S\2 LVLs ap2 7.3 cm ESV(MOD-sp2) 24.9 ml ESV(sp2-el) 20.4 ml EF(MOD-sp2) 44.9 % EF(sp2-el) 51.0 % LVLd %diff -9.66 % EDV(MOD-bp) 59.6 ml LVLs %diff 3.1 % ESV(MOD-bp) 30.2 ml EF(MOD-bp) 49.3 % SV(MOD-sp4) 37.8 ml SI(MOD-sp4) 18.2 ml/m\S\2 SV(MOD-sp2) 20.3 ml SI(MOD-sp2) 9.8 ml/m\S\2 SV(MOD-bp) 29.4 ml SI(MOD-bp) 14.2 ml/m\S\2 SV(sp4-el) 36.4 ml SI(sp4-el) 17.5 ml/m\S\2 SV(sp2-el) 21.3 ml SI(sp2-el) 10.3 ml/m\S\2 Doppler Measurements and Calculations MV E max sintia 61.2 cm/sec MV A max sintia 89.3 cm/sec MV E/A 0.69 MV dec time 0.22 sec Ao V2 max 139.0 cm/sec Ao max PG 7.7 mmHg Ao max PG (full) 4.1 mmHg LV V1 max PG 3.6 mmHg LV V1 max 94.8 cm/sec PA V2 max 101.0 cm/sec PA max PG 4.1 mmHg
--- NOTE | 2016-10-19 21:01 | Family Medicine Progress Note ---
Progress Note Date of Service Oct 19, 2016. Subjective Pt evaluation today including: conversation w/ patient, physical exam, chart review, lab review Patient says she is feeling a lot better this morning after having received transfusion of 1 unit of pRBC. She claims that she has not felt this well in months. Patient feeling less dyspneic upon conversation. 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 She is also in a very optimistic mood. Slept well. Not a fan of still being on liquid diet for breakfast. Slept comfortably. No issues with bowels or urination. Constitutional: No chills, No fever, No sweats Respiratory: No cough, No dyspnea at rest, No wheezing Cardiovascular: + PND, + edema, + orthopnea, No chest pain, No palpitations Abdomen: No constipation, No diarrhea, No nausea, No pain, No vomiting Female : No dysuria Objective Vital Signs Date Time Temp Pulse Resp B/P Pulse Ox O2 Delivery O2 Flow Rate FiO2 10/19/16 20:00 Nasal Cannula 3.0 10/19/16 19:38 76 20 96 Nasal Cannula 3.0 10/19/16 19:29 36.4 74 20 167/98 96 3.0 10/19/16 16:00 Nasal Cannula 3.0 10/19/16 15:44 36.5 80 20 162/93 95 3.0 10/19/16 14:10 64 20 4 Nasal Cannula 3.0 10/19/16 12:00 Nasal Cannula 3.0 10/19/16 11:34 36.4 83 22 178/92 94 Nasal Cannula 3.0 10/19/16 08:00 Nasal Cannula 3.0 10/19/16 07:40 179/116 10/19/16 07:36 36.5 75 28 182/113 97 Nasal Cannula 3.0 10/19/16 07:10 84 16 92 Nasal Cannula 3.0 10/19/16 04:00 Nasal Cannula 3.0 10/19/16 03:51 36.7 75 20 102/74 93 Nasal Cannula 2.0 10/19/16 02:14 78 16 96 Nasal Cannula 3.0 10/19/16 00:21 36.9 85 20 178/51 96 Nasal Cannula 3.0 10/19/16 00:00 Nasal Cannula 3.0 10/18/16 22:15 36.6 84 22 188/116 94 3.0 10/18/16 21:58 36.5 78 22 179/114 91 3.0 10/18/16 21:33 36.6 80 24 203/110 96 3.0 10/18/16 21:02 36.5 83 22 179/117 91 3.0 Physical Exam General Appearance: WD/WN, no apparent distress, + obese Neck: supple, no adenopathy Respiratory/Chest: chest non-tender, lungs clear, normal breath sounds, no respiratory distress Cardiovascular: regular rate, rhythm, no murmur Abdomen: normal bowel sounds, non tender, soft Extremities: no calf tenderness, + pedal edema Neurologic/Psychiatric: alert, normal mood/affect, oriented x 3 Skin: normal color, warm/dry, no rash Laboratory Results Results Past 24 Hours Test 10/19/16 05:12 10/19/16 06:35 10/19/16 11:07 10/19/16 16:05 Range/Units White Blood Count 10.81 4.8-10.8 K/uL Red Blood Count 3.47 4.2-5.4 M/uL Hemoglobin 9.2 12.0-16.0 g/dL Hematocrit 29.5 37-47 % Mean Corpuscular Volume 85.0 80-100 fL Mean Corpuscular Hemoglobin 26.5 25-34 pg Mean Corpuscular Hemoglobin Concent 31.2 32-36 g/dl Platelet Count 446 130-400 K/uL Mean Platelet Volume 10.1 7.4-10.4 fL Neutrophils (%) (Auto) 64.8 % Lymphocytes (%) (Auto) 20.4 % Monocytes (%) (Auto) 12.1 % Eosinophils (%) (Auto) 2.1 % Basophils (%) (Auto) 0.3 % Neutrophils # (Auto) 7.00 1.4-6.5 K/uL Lymphocytes # (Auto) 2.21 1.2-3.4 K/uL Monocytes # (Auto) 1.31 0.11-0.59 K/uL Eosinophils # (Auto) 0.23 0-0.5 K/uL Basophils # (Auto) 0.03 0-0.2 K/uL RDW Standard Deviation 56.9 36.4-46.3 fL RDW Coefficient of Variation 18.5 11.5-14.5 % Immature Granulocyte % (Auto) 0.3 % Immature Granulocyte # (Auto) 0.03 0.00-0.02 K/uL Nucleated RBC Absolute Count (auto) 0.06 0-0 K/uL Nucleated Red Blood Cells % 0.6 % Prothrombin Time 12.0 9.0-12.0 SECONDS Prothromb Time International Ratio 1.1 0.9-1.1 Sodium Level 138 136-145 mmol/L Potassium Level 3.5 3.5-5.1 mmol/L Chloride Level 100 98-107 mmol/L Carbon Dioxide Level 25 21-32 mmol/L Anion Gap 13.0 3-11 mmol/L Blood Urea Nitrogen 34 7-18 mg/dl Creatinine 2.60 0.60-1.20 mg/dl Est Creatinine Clear Calc Drug Dose 23.4 ml/min Estimated GFR () 20.4 Estimated GFR (Non- 17.6 BUN/Creatinine Ratio 13.0 10-20 Random Glucose 127 70-99 mg/dl Calcium Level 9.1 8.5-10.1 mg/dl Total Bilirubin 0.7 0.2-1 mg/dl Aspartate Amino Transf (AST/SGOT) 23 15-37 U/L Alanine Aminotransferase (ALT/SGPT) 21 12-78 U/L Alkaline Phosphatase 88 45-117 U/L Troponin I 3.600 0-0.045 ng/ml Total Protein 8.9 6.4-8.2 gm/dl Albumin 2.8 3.4-5.0 gm/dl Globulin 6.1 2.5-4.0 gm/dl Albumin/Globulin Ratio 0.5 0.9-2 Bedside Glucose 125 131 128 70-90 mg/dl Test 10/19/16 20:12 Range/Units Bedside Glucose 141 70-90 mg/dl Assessment and Plan 71 year old female with lung CA s/p lobectomy, COPD, smoking history admitted with anemia secondary to potential GI bleed, elevated troponin, acute on chronic renal insufficiency and COPD exacerbation vs pneumonia. Acute on chronic anemia secondary to GI bleed - Hb on admission 8.7. FOBT positive. Anemia worsened to 8.0 - Likely secondary to combination of steroid and Motrin use - Notice acute drop in Hb from Apr 2016 to May 2016 on out patient visits from 11.8 to 9.8. - In view of elevated troponin, cardiology recommend blood transfusion - Patient initially undecided because family is Oriental orthodox, and patient may want to pursue similarly eventually - Agreeable for transfusion od 1 unit pRBC overnight on 10/19 - no Lasix given in conjunction. - Started patient on Ferrous gluconate 324mg daily with daily scheduled Colace - GI consulted. Recommendations appreciated: Protonix 40 mg BID to treat any potential stomach ulcer that may have contributed to anemia. Continue to monitor H/H. Avoid NSAIDs. Acute RI - Patient having intermittent chest pain for last 2 weeks - Troponin continues to trend upwards, although incline decreased - Echo recently performed in August 2016 - Cardiology consulted. Recommendations appreciated - EKG done at 1:30 similar to the one from earlier in the ED, however with wondering baseline ? ST changes, repeat EKG and continue to trend troponin - Repeat echo 10/19 showed: Grossly normal systolic function. LVEF 50-55%. Paradoxical septal motion. Grade I diastolic dysfunction. No significant valvular pathology. Dilated IVC suggestive of elevated CVP (RA Est 15 mmHg). - Held on increasing metoprolol to 50mg BID in view of pulse in acceptable range and new changes made in BP medication to be assessed first Acute on chronic renal insufficiency - Creatinine bumped to 4.6 in [facility] - Out patient creatinine documented as 2.1 - unsure of baseline - Current creatine levels trended to determine. COPD exacerbation vs pneumonia. - Patient has been on recurrent steroids, getting sick whenever she is off of them - Patient recently discharged from [facility] last week with treatment for pneumonia - CXR: Cardiomegaly with evidence of congestive failure and interstitial edema. Superimposed pneumonia would be impossible to exclude. No large pleural effusion is seen - Patient placed on empiric IV vancomycin and Zosyn for pneumonia treatment - However, in view of imaging, non-systemic symptoms, and procalcitonin within normal limits, unlikely to be pneumonia - Thus antibiotics discontinued - Out patient PFTs show no COPD, restrictive pattern. Total lung volume significantly diminished secondary to lobectomy - Dyspnea significantly improved with 1 unit pRBC transfusion. Chronic Hypoxemia - Likely secondary to lobectomy for cancer - On baseline 3L O2 DM - Lantus held - Patient started on sliding scale and BSG Acute diastolic CHF - on spironolactone - Lungs sound clear - Will reassess tomorrow for need for further diuresis with Lasix HTN - SBP's in 200s - Started patient on 120mg PO diltiazem daily, causing some improvement on SBP into the 170s - Titrating up to 240mg PO diltiazem tomorrow for further benefit of improved pressure as well as improved left ventricular diastolic function - IV labetalol 20 mg IV q6h PRN SBP > 160 or DBP > 90. Dispo: - Telemetry Code status: - Full code Resident Physician Supervision Note: I interviewed and examined the patient. Discussed with Dr. Díaz and agree with findings and plan as documented in the note. Any exceptions or clarifications are listed here: None Documented By: Arcadio Townsend feeling much better after transfusion. breathing better more energy. still awaiting echo vitals noted, lungs cta b/l no r/r/w good effort, diminished on R as before but no adventitious sounds ap ARF, severe demand ischemia vs NSTEMI, GI bleeding w subacute blood loss anemia , renal failure (?acute on chronic - seems to have had rapid worsening this fall but unclear exact time course) -improved after transfusion symptomatically. suspect respiratory illness was poor reserve + bronchitis type picture given hx of recent acute respiratory illness but clear lungs now; NSTEMI (silent RI) vs severe demand ischemia mostly to be determined by +/- RWMA on echo - pending; since no unstable angina can't really safely consider LHC at this time due to renal failure. continue to hold off on diuretic - given improvement in sx w transfusion, depending on creatinine trends may even cautiously consider IVFs. clinically improving, complicated picture - particularly with most of her illnesses being acute on chronic -protonix as per GI -pharmacologic DVT proph contraindicated due to bleeding
[2016-10-20] VITALS (9 sets, daily range): BP systolic 131–171; BP diastolic 69–94; PULSE 57–77; TEMP 36.5–37.1; O2SAT 93–98
[2016-10-20] MEDS: LEVALBUTEROL 1.25MG/0.5ML NEB INH SCH ×3 (02:43→14:15)
[2016-10-20] MEDS: PANTOprazole INJ 40 MG in DEXTROSE 5% 100ML IV SCH ×4 (04:55→21:08)
[2016-10-20 06:43] LABS: BASO % 0.6 %; BASO ABS # 0.07 K/uL (0-0.2); COMPLETE YES; EOS % 22.2 %; HEMATOCRIT 31.6 % (37-47); IG% 0.2 %; LYMPH % 27.3 %; LYMPH ABS # 3.31 K/uL (1.2-3.4); MEAN CELL VOLUME 87.8 fL (80-100); MEAN CORPUSCULAR HEMOGLOBIN 26.7 pg (25-34); MEAN CORPUSCULAR HGB CONC 30.4 g/dl (32-36); MEAN PLATELET VOLUME 10.2 fL (7.4-10.4); MONO % 8.5 %; NEUT % 41.2 %; PLATELET COUNT 425 K/uL (130-400); WHITE BLOOD COUNT 12.12 K/uL (4.8-10.8)
[2016-10-20 07:07] LABS: PROTHROMBIN TIME (PATIENT) 10.9 SECONDS (9.0-12.0)
[2016-10-20 07:13] LABS: BUN/CREATININE RATIO 12.5 (10-20); CREATININE 2.7 mg/dl (0.60-1.20); POTASSIUM 3.6 mmol/L (3.5-5.1)
[2016-10-20 07:27] LABS: ALB/GLOB RATIO 0.5 (0.9-2)
[2016-10-20] MEDS: BUDESONIDE 0.5 MG/2 ML VIAL (PULMICORT) INH SCH (07:34)
[2016-10-20] MEDS: SPIRONOLACTONE 25 MG TAB PO SCH (08:33)
[2016-10-20] MEDS: METOPROLOL TARTRATE 25 MG TAB PO SCH (08:33)
[2016-10-20] MEDS: DILTIAZEM HCL 120 MG CAPCR PO SCH (08:33)
[2016-10-20] MEDS: DOCUSATE SODIUM 100 MG CAP PO SCH (08:33)
[2016-10-20] MEDS: FERROUS GLUCONATE 324 MG TAB PO SCH (08:33)
[2016-10-20] MEDS: DIAZEPAM 2MG TAB PO SCH ×3 (08:33→20:18)
[2016-10-20] MEDS: ATORVASTATIN 40 MG TAB PO SCH (08:33)
[2016-10-20] MEDS ORDERED: DILTIAZEM HCL 120 MG CAPCR PO SCH (09:00)
--- NOTE | 2016-10-20 09:53 | Family Medicine Progress Note ---
Progress Note Date of Service Oct 20, 2016. Subjective Pt evaluation today including: conversation w/ patient, physical exam, chart review, lab review Patient says she is continuing to feel a lot better this morning. She is comfortable, and happy she is on regular diet. Patient feeling less dyspneic with conversation. 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 Slept comfortably. No issues with bowels or urination. However, patient in increasingly frustrated about still being in hospital. She says she can't take it anymore and daughter convinced her on the phone to stay one more day. Given patient's history of signing out AMA, this is a possible outcome. She says she will attend all her follow up appointments but really hopes/expects to be discharged by tomorrow. Constitutional: No chills, No fever Respiratory: No cough, No shortness of breath, No wheezing Cardiovascular: + PND, + edema, + orthopnea, No chest pain, No palpitations Abdomen: No constipation, No diarrhea, No nausea, No pain, No vomiting Musculoskeletal: + swelling, No calf pain Female : No dysuria Psychiatric: + anxiety Objective Vital Signs Date Time Temp Pulse Resp B/P Pulse Ox O2 Delivery O2 Flow Rate FiO2 10/20/16 08:12 150/88 10/20/16 07:09 63 20 98 Nasal Cannula 3.0 10/20/16 07:06 36.5 57 22 96 3.0 10/20/16 04:15 37.1 77 18 171/94 93 Nasal Cannula 3.0 10/20/16 04:00 Nasal Cannula 3.0 10/20/16 00:00 Nasal Cannula 3.0 10/19/16 23:31 37.0 78 18 163/95 97 Nasal Cannula 3.0 10/19/16 20:00 Nasal Cannula 3.0 10/19/16 19:38 76 20 96 Nasal Cannula 3.0 10/19/16 19:29 36.4 74 20 167/98 96 3.0 10/19/16 16:00 Nasal Cannula 3.0 10/19/16 15:44 36.5 80 20 162/93 95 3.0 10/19/16 14:10 64 20 4 Nasal Cannula 3.0 10/19/16 12:00 Nasal Cannula 3.0 10/19/16 11:34 36.4 83 22 178/92 94 Nasal Cannula 3.0 Physical Exam General Appearance: WD/WN, no apparent distress Neck: supple, no adenopathy Respiratory/Chest: lungs clear, normal breath sounds, no respiratory distress, no accessory muscle use Cardiovascular: regular rate, rhythm, no murmur Abdomen: normal bowel sounds, non tender, soft Extremities: non-tender, no calf tenderness, + pedal edema Neurologic/Psychiatric: alert, oriented x 3 Skin: normal color, warm/dry, no rash Laboratory Results Results Past 24 Hours Test 10/19/16 11:07 10/19/16 16:05 10/19/16 20:12 10/20/16 05:50 Range/Units Bedside Glucose 131 128 141 70-90 mg/dl White Blood Count 12.12 4.8-10.8 K/uL Red Blood Count 3.60 4.2-5.4 M/uL Hemoglobin 9.6 12.0-16.0 g/dL Hematocrit 31.6 37-47 % Mean Corpuscular Volume 87.8 80-100 fL Mean Corpuscular Hemoglobin 26.7 25-34 pg Mean Corpuscular Hemoglobin Concent 30.4 32-36 g/dl Platelet Count 425 130-400 K/uL Mean Platelet Volume 10.2 7.4-10.4 fL Neutrophils (%) (Auto) 41.2 % Lymphocytes (%) (Auto) 27.3 % Monocytes (%) (Auto) 8.5 % Eosinophils (%) (Auto) 22.2 % Basophils (%) (Auto) 0.6 % Neutrophils # (Auto) 4.99 1.4-6.5 K/uL Lymphocytes # (Auto) 3.31 1.2-3.4 K/uL Monocytes # (Auto) 1.03 0.11-0.59 K/uL Eosinophils # (Auto) 2.69 0-0.5 K/uL Basophils # (Auto) 0.07 0-0.2 K/uL RDW Standard Deviation 59.6 36.4-46.3 fL RDW Coefficient of Variation 18.8 11.5-14.5 % Immature Granulocyte % (Auto) 0.2 % Immature Granulocyte # (Auto) 0.03 0.00-0.02 K/uL Nucleated RBC Absolute Count (auto) 0.05 0-0 K/uL Nucleated Red Blood Cells % 0.4 % Prothrombin Time 10.9 9.0-12.0 SECONDS Prothromb Time International Ratio 1.0 0.9-1.1 Sodium Level 141 136-145 mmol/L Potassium Level 3.6 3.5-5.1 mmol/L Chloride Level 103 98-107 mmol/L Carbon Dioxide Level 28 21-32 mmol/L Anion Gap 10.0 3-11 mmol/L Blood Urea Nitrogen 34 7-18 mg/dl Creatinine 2.70 0.60-1.20 mg/dl Est Creatinine Clear Calc Drug Dose 22.3 ml/min Estimated GFR () 19.5 Estimated GFR (Non- 16.8 BUN/Creatinine Ratio 12.5 10-20 Random Glucose 113 70-99 mg/dl Calcium Level 9.0 8.5-10.1 mg/dl Total Bilirubin 0.4 0.2-1 mg/dl Aspartate Amino Transf (AST/SGOT) 21 15-37 U/L Alanine Aminotransferase (ALT/SGPT) 22 12-78 U/L Alkaline Phosphatase 77 45-117 U/L Troponin I 3.130 0-0.045 ng/ml Total Protein 8.4 6.4-8.2 gm/dl Albumin 2.7 3.4-5.0 gm/dl Globulin 5.7 2.5-4.0 gm/dl Albumin/Globulin Ratio 0.5 0.9-2 Test 10/20/16 06:47 Range/Units Bedside Glucose 120 70-90 mg/dl Assessment and Plan 71 year old female with lung CA s/p lobectomy, COPD, smoking history admitted with anemia secondary to potential GI bleed, elevated troponin, acute on chronic renal insufficiency and COPD exacerbation vs pneumonia. Acute on chronic anemia secondary to GI bleed - Hb on admission 8.7. FOBT positive. Anemia worsened to 8.0 - Likely secondary to combination of steroid and Motrin use - Notice acute drop in Hb from Apr 2016 to May 2016 on out patient visits from 11.8 to 9.8. - In view of elevated troponin, cardiology recommend blood transfusion - Patient initially undecided because family is Religion, and patient may want to pursue similarly eventually - Agreeable for transfusion of 1 unit pRBC overnight on 10/19 - no Lasix given in conjunction. - Started patient on Ferrous gluconate 324mg daily with daily scheduled Colace - GI consulted. Recommendations appreciated: Protonix 40 mg BID to treat any potential stomach ulcer that may have contributed to anemia. Continue to monitor H/H. Avoid NSAIDs. - Discussed colonoscopy to find source of GI bleed, however, patient declined. Acute SC - Patient having intermittent chest pain for last 2 weeks - Troponin continues to trend upwards, although incline decreased - Echo recently performed in August 2016 showing: Normal left ventricular size , wall motion, and systolic function. EF = 55-60%. Mild concentric left ventricular hypertrophy. Grade I diastolic dysfunction. - Cardiology consulted. Recommendations appreciated - EKG done at 1:30 similar to the one from earlier in the ED, however with wondering baseline ? ST changes - Repeat EKG showed tracing similar to ED, and troponin trended: 2.47 --> 2.52 - -> 2.69 --> 2.65 --> 2.76 --> 2.90 --> 3.60 --> 3.13 - Repeat echo 10/19 showed: Grossly normal systolic function. LVEF 50-55%. Paradoxical septal motion. Grade I diastolic dysfunction. No significant valvular pathology. Dilated IVC suggestive of elevated CVP (RA Est 15 mmHg). - Held on increasing metoprolol to 50mg BID in view of acceptable pulse Acute on chronic renal insufficiency - Creatinine bumped to 4.6 in [facility] - Out patient creatinine documented as 2.1 - unsure of baseline - Current creatine levels trended to determine. COPD exacerbation vs pneumonia. - Patient has been on recurrent steroids, getting sick whenever she is off of them - Patient recently discharged from [facility] last week with treatment for pneumonia - CXR: Cardiomegaly with evidence of congestive failure and interstitial edema. Superimposed pneumonia would be impossible to exclude. No large pleural effusion is seen - Patient placed on empiric IV vancomycin and Zosyn for pneumonia treatment - However, in view of imaging, non-systemic symptoms, and procalcitonin within normal limits, unlikely to be pneumonia - Thus antibiotics discontinued - Out patient PFTs show no COPD, restrictive pattern. Total lung volume significantly diminished secondary to lobectomy - Dyspnea significantly improved with 1 unit pRBC transfusion. Chronic Hypoxemia - Likely secondary to lobectomy for cancer - On baseline 3L O2 - Patient on symbicort, combivent, flovent and solumedrol at home. - In hospital, patient put on albuterol PRN, and scheduled tiotropium and Advair - Solumedrol discontinued DM - Lantus held - Patient started on sliding scale and BSG Diastolic CHF - On spironolactone - Lungs sound clear - Previous use of Lasix caused bump in creatinine - Given patient's edema more likely secondary to chronic venous insufficiency rather than cardiac fluid overload, Lasix discontinued. HTN - SBPs noted to be in the 200s - Patient on metoprolol to 25mg BID - Started patient on 120mg PO diltiazem daily, causing some improvement on SBP into the 170s - Titrated up to 240mg PO diltiazem for further benefit of improved pressure as well as improved left ventricular diastolic function - IV labetalol 20 mg IV q6h PRN SBP > 160 or DBP > 90. - Discontinued metoprolol to 25mg BID to carvedilol 3.125mg BID, as carvedilol will lower blood pressure without decreasing pulse as significantly as metoprolol may Dispo: - Telemetry Code status: - Full code Resident Physician Supervision Note: I interviewed and examined the patient. Discussed with Dr. Díaz and agree with findings and plan as documented in the note. Any exceptions or clarifications are listed here: None Documented By: Arcadio Townsend feeling better, breathing better continues. no new problems, anxious to get out of hospital. nad, breathing unlabored, vitals noted, edema unchanged a/p sob/weakness - with hindsight of benefit of transfusion - appears subacute anemia culprit for exacerbation superimposed on severe underlying lung disease ( mostly just poor lung volumes from prior lobectomy, but also likely a degree of restrictive and possibly a degree of obstructive masked by eachother and by her overall reduced lung volumes on PFTs) w underlying CAD for which the anemia/sob caused demand ischemia resulting in troponin bump, and underlying CKD slowly progressing due to all risks but also probably worse due to poor flow from anemia. careful med management, cautious withhold further diuretics (since creatinine has bumped at each dose, and lungs without rales, breathing feeling better - so peripheral edema likely multifactorial and predominantly venous). likely can go home tomorrow but will need close outpt f/u, frequent labs, and ongoing dose adjustments - tried to impart this to pt anemia - from GI source - subacute - discussed at length and in detail possible sources including UGI/ulcers, AVMs, and malignancy. discussed that if malignancy frequently these are correctable by scope and could be life saving if endoscopic w/u pursued (discussed this in the context of doing so as outpt since she is so keen to leave). had to redirect conversation frequently as pt would try to change subject, but dw her that she needs to understand risks/ benefits to be able to make a rational decision -- as long as she does, then the decision is hers. after lengthy discussions, it was clear that she does understand, and at this point she declines endoscopic w/u even if it means that an underlying, correctable malignancy would be able to progress and cause her demise CAD - right now stable clinically and echo without regional wall motion abnormalities. not safe to pursue cath due to: a) subacutely worsening CKD which would be high risk for severe contrast nephropathy and: b) anemia from GI source being likely the "spark that lit the fire" on her overall decompensation precluding safe use of antiplatelets if any intervention was needed as well as: c) exceedingly high risk (and would decline) for CABG if she were found to be a candidate
--- NOTE | 2016-10-20 11:03 | CARDIOLOGY PROGRESS NOTE ---
DATE: 10/20/2016 TIME: 10:34 a.m. SUBJECTIVE: I am seeing Ms. Seth for Dr. Ruiz, who is away from the hospital today and tomorrow. She denies chest pain, shortness of breath, syncope, near syncope, palpitations or bleeding such as melena, hematochezia or hematuria. OBJECTIVE: VITAL SIGNS: Temperature 36.5 degrees, heart rate 63 beats per minute and currently on telemetry, her heart rate is in the upper 57 beats per minute, respiratory rate 20, blood pressure 150/88 mmHg, and oxygen saturation is 98% on 3 liters per nasal cannula. I's and O's negative 900 mL yesterday and weight is 115.5 kg. GENERAL: No acute distress. She is alert. NECK: Thick, cannot appreciate JVD. CARDIAC EXAM: No ventricular heave. Regular, normal S1 and S2. No audible murmurs, rubs or gallops. LUNGS: Coarse breath sounds intermittently throughout with some expiratory wheezing. ABDOMEN: Obese, soft, nontender, and nondistended. Normoactive bowel sounds. EXTREMITIES: Trace to 1+ bilateral lower extremity edema. No cyanosis. PSYCHIATRIC: Affect appears appropriate. MEDICATIONS: Include atorvastatin 80 mg daily; diltiazem 240 mg daily, first dose today after receiving 120 mg yesterday; labetalol IV p.r.n.; metoprolol tartrate 25 mg p.o. t.i.d.; spironolactone 25 mg daily; and vancomycin IV. Telemetry personally reviewed. No arrhythmia noted. Sinus bradycardia currently. LABORATORY DATA: White blood cell count is 12.12, hemoglobin 9.6, and platelets 425. Sodium 141, potassium 3.6, BUN 34, and creatinine 2.7 up from 2.6. Troponin peak was 3.6 and has since trended downward. LDL on presentation was 169. Chest x-ray 10/17/2016 reported as possible pneumonia and concerns for vascular congestion. Echocardiogram performed yesterday reported EF of 50%-55%. No regional wall motion abnormalities. Type 1 diastolic dysfunction. Dilated IVC. No significant valvular abnormalities. ASSESSMENT AND PLAN: 1. Non-ST elevation myocardial infarction: Her troponins did peak at just above 3. She reports no angina at this time. She is also here with suspected acute blood loss anemia with heme-positive stools. For this reason, antiplatelet therapy has not been instituted. She has received blood transfusion. There is no role for urgent cardiac catheterization at this time as she is not experiencing an ST elevation myocardial infarction and no angina. PCI would be concerning given her heme positive stools and with significant anemia upon presentation. Recommend optimization of blood pressure. Continue high intensity statin therapy. Continue beta charles. 2. Acute diastolic congestive heart failure: She was diuresed yesterday. Her creatinine did become more elevated today. We would hold off on IV diuretics today. She is on spironolactone. We will add a low dose oral diuretic to see how her renal function response. This will also aid in blood pressure management. 3. Hypertension: Blood pressure seems to have improved somewhat, but she is still hypertensive. Diltiazem was increased to 240 mg this morning. We will see how this affects her blood pressure; however, she is bradycardic. For this reason, metoprolol tartrate will be changed to carvedilol, which may offer better blood pressure support, but also not necessarily causes much bradycardia. Especially now, the Diltiazem has been increased by the hospitalist service. She is not on an COLEMAN inhibitor secondary to her renal function. 4. Anemia: As per primary service and GI. 5. Disposition: Cardiology will continue to follow.
[2016-10-20] MEDS ORDERED: FUROSEMIDE 40 MG TAB PO ONE (11:27)
[2016-10-20] MEDS ORDERED: LABETALOL HCL IV 5 MG/ML 20ML IV PRN (12:00)
[2016-10-20] MEDS ORDERED: ALBUTEROL HFA 8 GM INHALER INH PRN (15:45)
[2016-10-20] MEDS: FLUTICASONE/SALMETEROL 250/50 (ADVAIR) 14 PUFF/1 INHALER INH SCH (20:18)
[2016-10-20] MEDS ORDERED: CARVEDILOL 3.125 MG TAB PO SCH (21:00)
[2016-10-20] MEDS ORDERED: CARVEDILOL 6.25 MG TAB PO SCH (21:00)
[2016-10-21] MEDS: PANTOprazole INJ 40 MG in DEXTROSE 5% 100ML IV SCH (02:14)
[2016-10-21 04:09] VITALS: BP 160/85; PULSE 63; TEMP 36.8; O2SAT 98
[2016-10-21] MEDS ORDERED: NURSING VERBAL MED ORDER ONE (05:00)
[2016-10-21] MEDS ORDERED: PANTOprazole INJ 40 MG in DEXTROSE 5% 100ML IV SCH (07:00)
[2016-10-21 07:32] VITALS: BP 135/78; PULSE 66; TEMP 36.5; O2SAT 90
[2016-10-21 07:42] LABS: CREATININE 2.8 mg/dl (0.60-1.20)
--- NOTE | 2016-10-21 07:46 | CARDIOLOGY PROGRESS NOTE ---
DATE: 10/21/2016 TIME: 07:05 a.m. SUBJECTIVE: She denies chest pain, shortness of breath, orthopnea, syncope, near syncope, or palpitations. She has no specific complaints at this time. OBJECTIVE: VITAL SIGNS: Temperature 36.8 degrees, heart rate 63 beats per minute, respiratory rate 18, and blood pressure 160/85 mmHg; however, her blood pressure on a whole has improved over the past 24 hours compared to earlier this hospitalization. Her blood pressure on a few occasions has been in normotensive range, but otherwise [id number] hypertensive since yesterday morning. Oxygen saturation 98% on 3 liters per nasal cannula. I's and O's negative 787 mL yesterday. Weight is 116 kg. GENERAL: No acute distress. She is alert. NECK: Thick. Cannot appreciate JVD. CARDIAC EXAM: No ventricular heaves. Regular, normal S1 and S2. No audible murmurs, rubs or gallops. LUNGS: Coarse breath sounds at the bilateral bases, improved from yesterday. ABDOMEN: Soft, obese, nontender, and nondistended. Normoactive bowel sounds. EXTREMITIES: Trace bilateral lower extremity edema. No cyanosis. PSYCHIATRIC: Affect appears appropriate. MEDICATIONS: Include atorvastatin 80 mg daily, carvedilol 3.125 mg p.o. b.i.d., diltiazem 240 mg daily, spironolactone 25 mg daily, and Protonix 40 mg IV q. 5 hours. LABORATORY DATA: Her renal function today is pending. Her most recent glucose overnight was 146. Labs reviewed. Telemetry strips reviewed. No ventricular arrhythmias noted. ASSESSMENT AND PLAN: 1. Non-ST elevation myocardial infarction: Her troponins peaked just above 3. She had no angina and had suspected acute blood loss anemia with heme positive stools. If deemed safe from a GI standpoint, could consider antiplatelet therapy in the future, but not at this time as she presented with acute GI bleed and did receive blood transfusion during this hospitalization. Continue beta charles. Continue high intensity statin therapy. 2. Acute diastolic congestive heart failure: She appears to be euvolemic. If her renal function is stable, would give Lasix 20 mg to 40 mg p.o. daily. She is also on spironolactone. 3. Hypertension: Blood pressure overall has improved. We will increase carvedilol to 6.25 mg twice daily. Her bradycardia has improved off of metoprolol. She is also on diltiazem, which is a new medication for her. She is not on COLEMAN inhibitor secondary to her renal function. 4. Anemia: As per GI. 5. Disposition: Dr. Ruiz will resume her cardiology care when he returns to the hospital tomorrow.
[2016-10-21 08:00] VITALS: O2SAT 93
[2016-10-21] MEDS: FLUTICASONE/SALMETEROL 250/50 (ADVAIR) 14 PUFF/1 INHALER INH SCH (08:58)
[2016-10-21] MEDS ORDERED: TIOTROPIUM BROMIDE 5 PUFF/90 MCG INH INH SCH (09:00)
[2016-10-21] MEDS ORDERED: FUROSEMIDE 40 MG TAB PO SCH (09:00)
[2016-10-21] MEDS: SPIRONOLACTONE 25 MG TAB PO SCH (09:01)
[2016-10-21] MEDS: FERROUS GLUCONATE 324 MG TAB PO SCH (09:02)
[2016-10-21] MEDS: DOCUSATE SODIUM 100 MG CAP PO SCH (09:03)
[2016-10-21] MEDS: ATORVASTATIN 40 MG TAB PO SCH (09:04)
[2016-10-21] MEDS: DILTIAZEM HCL 120 MG CAPCR PO SCH (09:05)
[2016-10-21] MEDS: DIAZEPAM 2MG TAB PO SCH ×2 (09:08→12:36)
[2016-10-21] MEDS ORDERED: CARVEDILOL 6.25 MG TAB PO SCH (09:30)
[2016-10-21] MEDS ORDERED: PANTOprazole SOD 40 MG TAB PO SCH (10:00)
[2016-10-21 11:27] VITALS: BP 122/74; PULSE 71; TEMP 36.4; O2SAT 91
[2016-10-21 12:00] VITALS: O2SAT 93
--- NOTE | 2016-10-21 13:58 | Discharge Instructions ---
Discharge Instructions Admission Reason for Admission: Gi Bleed, High Output Heart Failure (Alka. Díaz MD) Discharge Discharge Diagnosis / Problem: Anemia due to GI bleed (Alka. Díaz MD) Discharge Goals Goal(s): Decrease discomfort, Improve disease control, Learn about illness, Diagnostic testing, Therapeutic intervention (Alka. Díaz MD) Activity Recommendations Activity Limitations: resume your previous activity (Alka. Díaz MD) Instructions / Follow-Up Instructions / Follow-Up You presented to the hospital with shortness of breath. Upon initial labs, it was determined that you were highly anemic and blood was found in your stool. We transfused you with 1 unit of blood and you had an immediate resolution of symptoms. With our investigations throughout your admission, and given your improvement with transfusion, we feel that your anemia has contributed to your other signs and symptoms as well. Your low hemoglobin levels have likely lead to increased stress on both your heart and kidney. Low blood iron from GI bleed - We recommend getting a colonoscopy to find the source of bleeding, especially because sometimes it can be fixed and there would be no more bleeding causing reduced risk of anemia in the future. We understand that you would currently like to avoid it. However, we urge you to think about it further, and let your PCP know if you reconsider. - Continue your Ferrous gluconate 324mg (iron supplements) and Colace (stool softener) to prevent constipation daily. This might (temporarily) compensate the iron lost from the bleeding. - Do not take aspirin or any NSAIDs (ibuprofen, naproxen, diclofenac etc.). These increase the risk of GI bleed. - If you notice large blood loss or have worsened shortness of breath, chest pain, dizziness/lightheadedness, you need to return to hospital to check if you require another transfusion - Follow up with your PCP next week so your hemoglobin can be monitored. Shortness of breath - You have been put on 3 inhalers which will likely help to improve your breathing. - Take albuterol 1-2 puff as needed whenever you are more short of breath/ wheezy than usual. This should improve symptoms immediately - Use Spiriva (1 puff in the morning) and Advair (1 puff twice a day) EVERY DAY , regardless of how you are feeling. These are correction management inhalers. - Remember that good technique is watson for them to work. - Bring your inhalers with you to your doctors appointment High blood pressure - Continue taking Diltiazem (Cardizem) 240mg daily and Carvedilol (Coreg) 6.25mg twice a day - We recommend getting a home blood pressure monitoring your kit to check your own blood pressure twice a day. - Keep a diary of all the numbers and bring both the inhalers and bring it with you to all your doctors appointments Kidney disease - Continue with spironolactone 25mg daily - Take Furosemide (Lasix) 40mg once per week. - Keep aware that if you are feeling suddenly increasingly short of breath, have suddenly increasing leg swelling or weight gain, contact your health care provider, as you may need to take an additional dose. - Follow up with your PCP next week so your kidney function can be monitored. Chronic diastolic CHF - This is managed by lifestyle changes including restriction of salt which acts as a sponge and keeps water in your body, which can put a strain on your heart - Read all food labels, try to avoid pre-packaged food, don't add extra salt to your food - Limit sodium to 2000mg in a day, with no more than 400mg in a single meal. Leg Swelling - Compression stockings are recommended. - The ones given to you in hospital are called MORGAN stockings. - If you are comfortable wearing them, and would like something tighter, there are higher grades of compression available. Diabetes - Continue your regular regimen of Lantus A lot of changes were made in hospital and we hope a combination of these changes will both make you feel better and keep you out of hospital. IT IS VERY IMPORTANT THAT YOU FOLLOW UP WITH YOUR PCP. Visits may be frequent initially as further tweaking is done to medications based on your body's response, but these will spread further over time as your condition stabilizes. Seek medical care immediately for worsening symptoms, or if new concerns arise. (Alka. Díaz MD) Instructions / Follow-Up in addition to instructions by Dr Díaz: Heart Strain -the stress on your heart from the low blood counts also created some significant strain - as noted by the elevation of your troponin levels. these levels filiberto to a level high enough to suggest you have coronary artery blockages , but fortunately your echocardiogram did not show areas that looked like heart wall damaged by a true heart attack. while normally a heart cath would be warranted to look for the blockages, your kidney function makes this more dangerous (the IV contrast they use could hurt your kidneys further); and if there were blockages they couldn't really do anything to fix them because doing so would require putting you on blood thinners (aspirin and plavix) that right now you can't take because of the bleeding in your gastrointestinal tract -we are managing your care with medications, that can take strain off your heart , and better "balance" supply and demand. this often is VERY protective of heart disease as well, but if you were to feel chest pressure/tightness/ shortness of breath we would certainly want you to get checked out right away. Breathing issues through the fall -seeing how much your breathing improved with the transfusion, it's fairly likely that a lot of your shortness of breath through the fall was actually due to low-oxygen because of the anemia (low blood counts) more than something specific to your lungs. this would be subtle because your counts never hit a low that it was 100% clear that a transfusion was necessary until you not only had the low counts but also the upset heart and kidneys showing poor blood flow/ oxygen delivery. steroids will frequently temporarily make people feel better/ more energetic regardless of what is being treated, so it's possible (only with the benefit of hindsight) that you might have been "feeling" the anemia all along. -to be on the safe side, we're also adding the inhalers as Dr Díaz outlined to make sure we help reign in your chronic lung disease as best as possible. after you're doing better for a while (and probably after cold/flu season has passed) we'll want to see if you still need all the inhalers or if certain ones can be gradually decreased or stopped. (Arcadio Townsend D.Nafisa) Current Hospital Diet Patient's current hospital diet: Low Sodium Diet (2gm Na) (Alka. Díaz MD) Discharge Diet Recommended Diet: Regular Diet, AHA Diet (Heart Healthy) (Alka. Díaz MD) Pending Studies Studies pending at discharge: no (Alka. Díaz MD) Laboratory Results Lipid Panel Test 10/18/16 07:15 Range/Units Triglycerides Level 120 0-150 mg/dl Cholesterol Level 229 H 0-200 mg/dl HDL Cholesterol 36 mg/dl Cholesterol/HDL Ratio 6.4 LDL Cholesterol, Calculated 169 mg/dl (Alka. Díaz MD) Medical Emergencies . Who to Call and When: Medical Emergencies: If at any time you feel your situation is an emergency, please call 911 immediately. . (Alka. Díaz MD) Non-Emergent Contact Non-Emergency issues call your: Primary Care Provider . (Alka. Díaz MD) . "Provider Documentation" section prepared by Dorie Díaz. (Alka. Díaz MD) VTE Core Measure Inpt VTE Proph given/why not?: Contraindicated (Alka. Díaz MD)
[2016-10-21] MEDS ORDERED: CLC100 PO (14:06)
[2016-10-21] MEDS ORDERED: SPRIN INH (14:06)
[2016-10-21] MEDS ORDERED: PRT40 PO (14:06)
[2016-10-21] MEDS ORDERED: PRVHFAIN INH (14:06)
[2016-10-21] MEDS ORDERED: ADVIN25050 INH (14:06)
[2016-10-21] MEDS ORDERED: CRG625 PO (14:06)
[2016-10-21] MEDS ORDERED: FRRG PO (14:06)
[2016-10-21] MEDS ORDERED: LPT40 PO (14:06)
[2016-10-21] MEDS ORDERED: CRDCD120 PO (14:06)
[2016-10-21 14:53] VITALS: BP 122/74; PULSE 71; TEMP 36.4; O2SAT 93
--- NOTE | 2016-10-21 16:01 | Discharge Summary ---
Discharge Summary Admission Date: Oct 17, 2016 at 20:11 Discharge Date: Oct 21, 2016 Discharge Disposition: Home Principal Diagnosis: Anemia - GI bleed, troponin rise - demand ischemia, acute on CKD, dCHF, HTN (Alka. Demarco MD) Medication Reconciliation New Medications: Albuterol (Ventolin Hfa) 60 Puffs/5400 Mcg Aers 1 PUFFS INH Q4 PRN for sob/wheeze for 30 Days, #1 INHALER 2 Refills Atorvastatin (Atorvastatin Calcium) 40 Mg Tab 80 MG PO QAM for 30 Days, #60 TAB 2 Refills Carvedilol (Carvedilol) 6.25 Mg Tab 6.25 MG PO BID for 30 Days, #60 TAB 2 Refills Diltiazem HCl (Diltiazem Cd) 120 Mg Capcr 240 MG PO QAM for 30 Days, #60 TAB 2 Refills Docusate Sodium (Docusate Sodium) 100 Mg Cap 100 MG PO DAILY for 30 Days, #30 CAP 2 Refills Ferrous Gluconate (Ferrous Gluconate) 324 Mg Tab 324 MG PO QAM for 30 Days, #30 TAB 2 Refills Fluticasone Prop/Salmeterol (Advair Diskus 250-50 Mcg/Dose) 14 Puff/1 Inhaler Aerp 1 PUFF INH BID for 30 Days, #1 INHALER 2 Refills Pantoprazole (Pantoprazole Sodium) 40 Mg Tab 40 MG PO BID for 30 Days, #60 TAB 2 Refills Tiotropium Ovid (Spiriva Handihaler) 5 Puff/90 Mcg Aerp 1 PUFF INH QAM for 30 Days, #1 INHALER 2 Refills Continued Medications: Calcium/Vitamin D (Os-Solomon 500 Plus D) Tab 1 TAB PO DAILY, TAB Diazepam (Valium) 2 Mg Tab 2 MG PO TID PRN for Anxiety, TAB Dulaglutide (Trulicity) 0.75 Mg/0.5 Ml Inj 0.75 MG SQ WK Fluticasone Propionate (Nasal) (Flonase Allergy Relief) 50 Mcg/Act Spr 2 SPRAY IGNACIO DAILY Hydrocodone/Acetaminophen (Refugio 10/325 Tab) 1 Tab Tab 1 TAB PO TID PRN for Pain, TAB Insulin Glargine (Lantus Solostar) 100 Unit/Ml Inj 25 SC QPM, PEN Spironolactone (Aldactone) 25 Mg Tab 25 MG PO DAILY, TAB Discontinued Medications: Aspirin (Aspirin Chewable) 81 Mg Chew 81 MG PO DAILY Budesonide/Formoterol Fumarate (Symbicort 160/4.5 Inhaler ) Aero 2 PUFFS INH BID, INHALER Hydrochlorothiazide (Hctz) 25 Mg Tab 25 MG PO DAILY, TAB Ipratropium-Albuterol (Combivent Respimat) 1 Aer Aer 1 PUFFS INH QID, INH Metoprolol Tartrate (Lopressor) (Lopressor) 25 Mg Tab 25 MG PO BID, TAB Omeprazole (Prilosec) 40 Mg Cap 40 MG PO DAILY, CAP [Flovent 110] () 2 PUFF INH BID Discharge Exam Patient says feels fine but is anxious for discharge. Anxiety visibly reduced when she was told we were aiming for discharge today. She is comfortable, and dyspnea at rest. No further chest pain/abdominal pain that she was feeling [employer]. Slept comfortably. No issues with bowels or urination. Agreeable for early outpatient follow up. Review of Systems: Constitutional: No chills, No fever, No sweats Respiratory: No cough, No dyspnea at rest, No wheezing Cardiovascular: + edema, + orthopnea, No PND, No chest pain, No palpitations Abdomen: No constipation, No diarrhea, No nausea, No pain, No vomiting Genitourinary - Female: No dysuria Psychiatric: + anxiety Physical Exam: General Appearance: WD/WN, no apparent distress Neck: supple, no adenopathy Respiratory/Chest: lungs clear, normal breath sounds, no respiratory distress, no accessory muscle use Cardiovascular: regular rate, rhythm, no edema Abdomen / GI: normal bowel sounds, non tender, soft Extremities: no calf tenderness, + pedal edema, + swelling Neurologic/Psychiatric: alert, normal mood/affect, oriented x 3 Skin: normal color, warm/dry, no rash (Alka. Demarco MD) Hospital Course 71 year old female with lung CA s/p lobectomy, COPD, smoking history admitted with anemia secondary to potential GI bleed, elevated troponin, acute on chronic renal insufficiency and COPD exacerbation vs pneumonia. Acute on chronic anemia secondary to GI bleed - Hb on admission 8.7. FOBT positive. Anemia worsened to 8.0 - Possibly acutely worsened secondary to combination of steroid and Motrin use, in addition to other possible GI bleeding source - Review of past records show acute drop in Hb from Apr 2016 to May 2016 on out patient visits from Hb 11.8 to 9.8. - In view of elevated troponin, cardiology recommend blood transfusion - Patient initially undecided because family is [employer], and patient may want to pursue similar - Eventually agreeable for transfusion of 1 unit pRBC overnight on 10/19 - Lasix given in conjunction. - Started patient on Ferrous gluconate 324mg daily with daily scheduled Colace - GI consulted. Recommendations appreciated: Protonix 40 mg BID to treat any potential stomach ulcer that may have contributed to anemia. Continue to monitor H/H. Avoid NSAIDs. - Discussed colonoscopy to find source of GI bleed, especially it could potentially be rectified and reduce risk of worsening anemia in the future may be reduced if cause. found. Patient understood the benefits of the procedure, but declined it, even on an outpatient basis. She was advised to think about it further, and let her PCP know, if she reconsiders. - Follow up with PCP in 1 week to recheck CBC Elevated troponin secondary to demand ischemia - Patient having intermittent chest pain for last 2 weeks - Troponin continues to trend upwards, although incline decreased - Echo recently performed in August 2016 showing: Normal left ventricular size , wall motion, and systolic function. EF = 55-60%. Mild concentric left ventricular hypertrophy. Grade I diastolic dysfunction. - Cardiology consulted. Recommendations appreciated - EKG done at 1:30 similar to the one from earlier in the ED, however with wondering baseline ? ST changes - Repeat EKG showed tracing similar to ED, and troponin trended: 2.47 --> 2.52 - -> 2.69 --> 2.65 --> 2.76 --> 2.90 --> 3.60 --> 3.13 - Repeat echo 10/19 showed: Grossly normal systolic function. LVEF 50-55%. Paradoxical septal motion. Grade I diastolic dysfunction. No significant valvular pathology. Dilated IVC suggestive of elevated CVP (RA Est 15 mmHg). - Started atorvastatin 40mg daily, continue metoprolol to 25mg BID - Cardiac cath not done to avoid risk for exacerbating AYLEEN from contrast use, usage of anti-platelets will possibly cause worsening GI bleed and possibly cause patient to decompensate, and patient is exceedingly high risk (and would decline) for CABG if she were found to be a candidate Acute on chronic renal insufficiency - Creatinine bumped to 4.6 in [facility] - Outpatient creatinine documented as 2.1 - Possible elevation secondary to dehydration, HTN, anemia - overall poor perfusion - Current creatine levels trended to determine baseline. During admission, creatinine ranged from 2.2 to 2.8 - With each use of Lasix, saw bump in creatinine, which is why Lasix 40mg limited to once weekly use, unless clear indications of fluid overload. - Follow up with PCP in 1 week to recheck BMP Dyspnea: Anemia vs COPD exacerbation vs pneumonia. - Patient has been on recurrent steroids, getting sick whenever she is off of them. Likely (in hindsight) masking symptoms rather than treating COPD - Patient recently discharged from [facility] last week with treatment for pneumonia - CXR: Cardiomegaly with evidence of congestive failure and interstitial edema. Superimposed pneumonia would be impossible to exclude. No large pleural effusion is seen - Patient placed on empiric IV vancomycin and Zosyn for pneumonia treatment - However, in view of imaging, non-systemic symptoms, and procalcitonin within normal limits, unlikely to be pneumonia, thus antibiotics discontinued - Outpatient PFTs show no COPD, restrictive pattern. Total lung volume significantly diminished secondary to lobectomy - Dyspnea significantly improved with 1 unit pRBC transfusion. - As such, in retrospect, dyspnea likely secondary to anemia Chronic Hypoxemia - Likely secondary to lobectomy for cancer - On baseline 3L O2 at home - Patient on Symbicort, Combivent, Flovent and solumedrol at home. - In hospital, patient put on albuterol PRN, and scheduled tiotropium and Advair - Solumedrol discontinued - Inhaler technique discussed with patient - Weaning may be tried in outpatient setting depending on if her symptoms take a more asthmatic or more COPD picture. DM - Lantus held - Patient started on sliding scale and BSG - Resumed home regimen on discharge Diastolic CHF - On spironolactone - Lungs sound clear - Previous use of Lasix caused bump in creatinine - Given patient's edema more likely secondary to chronic venous insufficiency rather than cardiac fluid overload, Lasix discontinued. - However, as precautionary measures to avoid worsening CHF, advised to take Lasix once weekly - Discussed salt restriction with patient. - Advised to seek medical care if worsening dyspnea, increased leg swelling, rapid increase in weight, worsening orthopnea/PND, and may need to take additional doses then. HTN - SBPs noted to be in the 200s - Patient on metoprolol to 25mg BID - Started patient on 120mg PO diltiazem daily, causing some improvement on SBP into the 170s - Titrated up to 240mg PO diltiazem for further benefit of improved pressure as well as improved left ventricular diastolic function - IV labetalol 20 mg IV q6h PRN SBP > 160 or DBP > 90. - Discontinued metoprolol to 25mg BID and added carvedilol 3.125mg BID, as carvedilol will lower blood pressure without decreasing pulse as significantly as metoprolol may - Carvedilol titrated up to 6.25mg BID for improved BP control Dispo: - Telemetry Code status: - Full code Total Time Spent: Greater than 30 minutes This includes examination of the patient, discharge planning, medication reconciliation, and communication with other providers. (Alka. Demarco MD) Resident Physician Supervision Note: I interviewed and examined the patient. Discussed with Dr. Demarco and agree with findings and plan as documented in the note. Any exceptions or clarifications are listed here: None Documented By: Arcadio Townsend feeling better, breathing better continues. no new problems, anxious to get out of hospital. still doesn't want w/u for anemia - revisited risks/benefits and rationale nad, breathing unlabored, very faint basilar rales, vitals noted, edema unchanged a/p sob/weakness - with hindsight of benefit of transfusion - appears subacute anemia culprit for exacerbation superimposed on severe underlying lung disease ( mostly just poor lung volumes from prior lobectomy, but also likely a degree of restrictive and possibly a degree of obstructive masked by eachother and by her overall reduced lung volumes on PFTs) w underlying CAD for which the anemia/sob caused demand ischemia resulting in troponin bump, and underlying CKD slowly progressing due to all risks but also probably worse due to poor flow from anemia. careful med management, cautious diuretic use - for now will use weekly dosing//discussed CHF s/s to call immediatley for further advice -- and will hopefully be able to work to where she understands how to do symptom triggered and more dynamic management. discussed Na restrict as well. anemia - from GI source - subacute - discussed at length and in detail 10/20, reviewed 10/21 possible sources including UGI/ulcers, AVMs, and malignancy. discussed that if malignancy frequently these are correctable by scope and could be life saving if endoscopic w/u pursued (discussed this in the context of doing so as outpt since she is so keen to leave). after lengthy discussions yesterday and today, it was clear that she does understand, and at this point she declines endoscopic w/u even if it means that an underlying, correctable malignancy would be able to progress and cause her demise CAD - right now stable clinically and echo without regional wall motion abnormalities. not safe to pursue cath due to: a) subacutely worsening CKD which would be high risk for severe contrast nephropathy and: b) anemia from GI source being likely the "spark that lit the fire" on her overall decompensation precluding safe use of antiplatelets if any intervention was needed as well as: c) exceedingly high risk (and would decline) for CABG if she were found to be a candidate stable for discharge close f/u - seeing dr demarco saturday, then scheduled for further f/u w dr abrams and cardiology. CBC, BMP weekly for foreseeable future Total Time Spent: Less than 30 minutes (Arcadio Townsend D.O.) Discharge Instructions Please refer to the electronic Patient Visit Report (Discharge Instructions) for additional information. (Alka. Demarco MD)
--- NOTE | 2016-10-29 05:11 | EDITING REQUIRED CODING QUERY ---
CODING QUERY To promote full compliance with coding requirements relating to patient care, provider participation is requested in all cases of sales floor associate uncertainty. Please assist us with the question(s) below: Coding Question(s): Dr. Townsend, Please clarify if the following diagnoses were present and treated during this encounter, as the documentation varies per the various providers who treated the patient. Please review dr demarco's discharge summary as she put tremendous detail into outlining and explaining below findings. NSTEMI ( ) present and treated ( x ) ruled out - see discharge summary was due to demand ischemia ( ) other, please explain Acute diastolic CHF ( ) present and treated ( x ) ruled out - see discharge summary outlined in detail that initial concern was CHF but acute presentation due to venous stasis ( ) other, please explain Pneumonia ( ) present and treated ( ) ruled out ( x ) other, please explain -- see discharge summary - explained in detail in regards to difficulty in definitively ruling out pneumonia, although it appeared unlikely COPD exacerbation ( ) present and treated ( ) ruled out ( x) other, please explain -- see same section of discharge summary Physician's Response(s): Thank you for your time, Cydney Breen
== END 2016-10-21 15:10 | disposition home or self-care (01) | DRG 378 ==
LOC: ENRESERVDT → ENRESERVTM → C.EDB 16:13 → C.2T 20:11
PROVIDERS: ADMIT Hospitalist; ATTEND Family Medicine
DX: K92.2 Gastrointestinal hemorrhage, unspecified (principal); I24.8 Other forms of acute ischemic heart disease; N17.9 Acute kidney failure, unspecified; I13.0 Hypertensive heart and chronic kidney disease with heart failure and stage 1 through stage 4 chronic kidney disease, or unspecified chronic kidney disease; I50.30 Unspecified diastolic (congestive) heart failure; D62 Acute posthemorrhagic anemia; Z68.42 Body mass index [BMI] 45.0-49.9, adult; F05 Delirium due to known physiological condition; T39.315A Adverse effect of propionic acid derivatives, initial encounter; T42.4X5A Adverse effect of benzodiazepines, initial encounter; T38.0X5A Adverse effect of glucocorticoids and synthetic analogues, initial encounter; Y92.230 Patient room in hospital as the place of occurrence of the external cause; D72.1 Eosinophilia; E86.0 Dehydration; R09.02 Hypoxemia; R06.00 Dyspnea, unspecified; R00.1 Bradycardia, unspecified; R07.9 Chest pain, unspecified; J44.9 Chronic obstructive pulmonary disease, unspecified; N18.9 Chronic kidney disease, unspecified; E11.22 Type 2 diabetes mellitus with diabetic chronic kidney disease; I25.10 Atherosclerotic heart disease of native coronary artery without angina pectoris; I87.2 Venous insufficiency (chronic) (peripheral); M10.9 Gout, unspecified; J30.9 Allergic rhinitis, unspecified; E78.5 Hyperlipidemia, unspecified; F41.9 Anxiety disorder, unspecified; M19.90 Unspecified osteoarthritis, unspecified site; E66.9 Obesity, unspecified; R60.0 Localized edema; Z99.81 Dependence on supplemental oxygen; Z53.29 Procedure and treatment not carried out because of patient's decision for other reasons; Z85.118 Personal history of other malignant neoplasm of bronchus and lung; Z90.2 Acquired absence of lung [part of]; Z87.01 Personal history of pneumonia (recurrent); Z87.891 Personal history of nicotine dependence; Z79.4 Long term (current) use of insulin; Z79.51 Long term (current) use of inhaled steroids; Z79.52 Long term (current) use of systemic steroids; Z79.82 Long term (current) use of aspirin; Z79.84 Long term (current) use of oral hypoglycemic drugs; Z79.891 Long term (current) use of opiate analgesic; Z79.899 Other long term (current) drug therapy